=== PATIENT | female | born 1970 | race Caucasian/White ===

== ENCOUNTER 2017-02-25 10:04 | Emergency (ER) | payer SELFPAY ==
[~2017-02-25] VITALS: Ht 162.6 cm; Wt 60.0 kg
[2017-02-25 10:11] VITALS: Ht 162.6 cm; Wt 60.0 kg
== END 2017-02-25 15:18 | disposition left against medical advice (07) ==
LOC: E/R 10:04
DX: Z53.21 Procedure and treatment not carried out due to patient leaving prior to being seen by health care provider (principal)

== ENCOUNTER 2017-02-25 10:56 | Inpatient (IN) | payer BC, MEDICAID ==
[~2017-02-25] VITALS: Ht 165.1 cm; Wt 90.6 kg
--- NOTE | 2017-02-25 13:30 | ERA ---
ER Documentation Chief Complaint Date/Time DATE: 02/25/17 TIME: 13:29 Chief Complaint AP X TODAY HPI The patient is a 46-year-old female, presenting to the ER because of right pelvic, right lower quadrant pain radiating up to right upper back today. She denies similar symptoms previously, denies fever, chills, neck pain, chest pain , vomiting, diarrhea, constipation, dysuria. She does not smoke, drinks socially Past medical history: None Past surgical history: One ROS All systems reviewed and are negative except as per history of present illness. Medications Home Meds No Active Prescriptions or Reported Meds Allergies Allergies: Coded Allergies: No Known Allergy (Unverified , 02/25/17) Physical Exam Vitals Vital Signs Date Time Temp Pulse Resp B/P Pulse Ox O2 Delivery O2 Flow Rate FiO2 02/25/17 16:37 85 19 124/93 100 Room Air 02/25/17 14:22 156/86 02/25/17 14:12 77 17 174/106 100 Room Air 02/25/17 10:59 98.7 68 18 156/82 99 Physical Exam Const: No acute distress. Head: Atraumatic. Eyes: Normal Conjunctiva. ENT: Normal External Ears, Nose and Mouth. Neck: Full range of motion. No meningismus. Resp: Clear to auscultation bilaterally. Cardio: Regular rate and rhythm, no murmurs. Abd: Soft, non distended, normal bowel sounds, moderate right lower quadrant, right pelvic, right CVA tenderness. No rigidity, rebound tenderness Skin: No petechiae or rashes. Back: No midline or flank tenderness. Ext: No cyanosis, or edema. Neur: Awake and alert. No focal deficit Psych: Normal Mood and Affect. Result Diagram: 02/25/17 1350 02/25/17 1350 Results 24 hrs Laboratory Tests Test 02/25/17 13:50 02/25/17 16:03 White Blood Count 11.910^3/ul Red Blood Count 4.4910^6/ul Hemoglobin 13.0g/dl Hematocrit 37.9% Mean Corpuscular Volume 84.4fl Mean Corpuscular Hemoglobin 29.0pg Mean Corpuscular Hemoglobin Concent 34.3g/dl Red Cell Distribution Width 14.7% Platelet Count 15299^3/UL Mean Platelet Volume 11.4fl Neutrophils % 89.0% Band Neutrophils % 2.0% Lymphocytes % 5.0% Monocytes % 4.0% Neutrophils # 10.610^3/ul Lymphocytes # 0.610^3/ul Monocytes # 0.510^3/ul Sodium Level 134mmol/L Potassium Level 3.8mmol/L Chloride Level 102mmol/L Carbon Dioxide Level 19mmol/L Anion Gap 17 Blood Urea Nitrogen 13mg/dl Creatinine 0.56mg/dl Glucose Level 113mg/dl Calcium Level 9.4mg/dl Total Bilirubin 0.7mg/dl Direct Bilirubin 0.00mg/dl Indirect Bilirubin 0.7mg/dl Aspartate Amino Transf (AST/SGOT) 32IU/L Alanine Aminotransferase (ALT/SGPT) 22IU/L Alkaline Phosphatase 77IU/L Total Protein 8.4g/dl Albumin 4.6g/dl Globulin 3.80g/dl Albumin/Globulin Ratio 1.21 Lipase 96U/L Bedside Urine pH (LAB) 8.5 Bedside Urine Protein (LAB) 1+ Bedside Urine Glucose (UA) Negative Bedside Urine Ketones (LAB) 4+ Bedside Urine Blood Negative Bedside Urine Nitrite (LAB) Negative Bedside Urine Leukocyte Esterase (L Negative Current Medications Medications (Trade) Dose Ordered Sig/Gilda Route PRN Reason Start Time Stop Time Status Last Admin Dose Admin Morphine Sulfate (morphine) 4 mg ONCE STAT IV 02/25/17 13:39 02/25/17 13:42 DC 02/25/17 14:07 Ondansetron HCl 4 mg 4 mg ONCE STAT IV 02/25/17 13:39 02/25/17 13:42 DC 02/25/17 14:08 Sodium Chloride (NS) 1,000 ml @ 1,000 mls/hr Q1H ONCE IV 02/25/17 15:30 02/25/17 16:29 DC 02/25/17 15:28 Procedures/[place] [id number] Radiology Main Line: [phone] DIAGNOSTIC IMAGING REPORT Patient: SHLOMO MANN : 1970 Age: 46 Sex: F MR #: [id number] DOS: 02/25/17 1339 Ordering MD: OKSANA LEGER MD Location: E/R Room/Bed: PROCEDURE: CT Abdomen and Pelvis without contrast. CLINICAL INDICATION: Abdominal pain TECHNIQUE: CT scan of the abdomen and pelvis without contrast was performed on a multi-slice CT scanner without intravenous contrast. Coronal and sagittal reformatted images were obtained from the axial source images. Images were reviewed on a high-resolution PACS workstation. One or more of the following does reduction techniques were used: Automated exposure control; adjustment of the mA and/or kV according to patient size; use of the aorta of reconstruction technique. The total exam CTDI equals 8.93 mGy and the total exam DLP equals 458.95 mGy-cm. COMPARISON: None available. FINDINGS: The lung bases are clear. Heart size is normal, and there is no evidence of pericardial thickening or effusion. Incidental note is made with small left Bochdalek hernia containing only fat The liver, spleen, and pancreas are normal given limitations of a noncontrast CT examination. The gallbladder is normal. The adrenal glands are normal. The kidneys without renal calculus or hydronephrosis. The aorta is of normal caliber. There is no retroperitoneal lymph node enlargment. There is no evidence of large or small bowel obstruction. A normal appendix is identified. No free fluid or fluid collections are identified. No inflammatory changes are seen. The uterus is present. There is gas and possible filling defect within the vagina there is a 5.5 x 4.9 x 10.6 cm complex cystic structure arising from the left ovary highly concerning for a cystic ovarian neoplasm. No enlarged pelvic sidewall lymph nodes are seen. There is small amounts of pelvic free fluid. The bladder is within normal limits. The inguinal regions are unremarkable The bones are intact. IMPRESSION: 1. 10.6 x 5.5 x 4.9 cm complex cystic structure arising from the right ovary consistent with cystic ovarian neoplasm until proven otherwise. Recommend additional evaluation with pelvic ultrasound in strong consideration for further evaluation with contrast enhanced MRI of the pelvis. 2. Small pelvic free fluid. 3. No CT evidence of acute intra-abdominal or pelvic process. RPTAT: KK .Willy Lott MD, Date Time Electronically viewed and signed by .Willy Lott MD, MD on 2016 16:29 .B/ CC: OKSANA LEGER MD [place] [id number] Radiology Main Line: [phone] DIAGNOSTIC IMAGING REPORT Patient: SHLOMO MANN : 1970 Age: 46 Sex: F MR #: [id number] DOS: 02/25/17 1641 Ordering MD: OKSANA LEGER MD Location: E/R Room/Bed: PROCEDURE: US Pelvis. CLINICAL INDICATION: Right adnexal mass. TECHNIQUE: The pelvis was evaluated with transabdominal and transvaginal sonography in the axial and sagittal planes. COMPARISON: CT scan of the abdomen and pelvis done earlier the same day which demonstrated a right adnexal mass measuring 10.6 x 5.5 x 4.9 cm and a small amount of pelvic free fluid. FINDINGS: Uterus: 11.8 x 4.9 x 6.0 cm. Endometrium: 17.2 mm. Right ovary: 10.8 x 5.5 x 5.2 cm. Left ovary: Not visualized. Uterine masses: None. Ovarian masses: As seen on prior CT scan, there is a right adnexal mass, arising likely from the right ovary measuring 10.8 x 5.1 x 5.4 cm. The mass is predominately cystic with some septations and small irregular solid component. The left ovary is not visualized Color Doppler and pulsed Doppler sonography demonstrate normal flow to right ovary Other pelvic masses: None. Free fluid: Trace free fluid is present in the cul-de-sac. IMPRESSION: 1. Right adnexal predominately cystic mass with some septations and solid component. This may be due to ovarian neoplasm. Gynecologic consultation is advised. 2. Left ovary not visualized. 3. Trace free fluid in the pelvis. 4. Otherwise unremarkable study. RPTAT: QQ .Marques Merritt MD, MD Date Time Electronically viewed and signed by .Marques Merritt MD, on 02/25/2017 17:48 .R/ CC: OKSANA LEGER MD MEDICAL MAKING DECISION: The patient is a 46-year-old female, presenting with acute large right pelvic mass, concerning for neoplasm. She was treated with 1 L normal saline for clinical dehydration, morphine m4 g IV for pain, Zofran 4 mg IV for nausea with good response The differential diagnoses considered include but are not limited to ovarian torsion, cholelithiasis, cholecystitis, cystitis, pancreatitis, hepatitis, gastritis, peptic ulcer disease, gastric ulcer, appendicitis, diverticulitis, cholangitis, choledocholithiasis, partial small bowel obstruction. Consultation: I discussed the patient with the on-call basin tender Dr Comer, who was made aware of the labs, the ultrasound finding, the treatment. He was in the ER to evaluate patient Departure Diagnosis: Primary Impression: Pelvic mass in female Condition: Stable Comments I discussed the findings with the patient. I discussed the patient with his physician Dr. Haynes who was made aware of the lab, the treatment, the patient condition and my discussion with her basin tender. The patient is admitted to medical surgery bed The patient's blood pressure was elevated (>120/80) but appears stable without evidence of hypertension emergency or urgency. The patient was counseled about the risks of hypertension and urged to pursue outpatient monitoring and therapy within a week with their primary care physician. OKSANA LEGER MD February 25, 2017 13:30
[2017-02-25] MEDS ORDERED: ONDANSETRON 4 MG INJ IV STA (13:39)
[2017-02-25] MEDS ORDERED: morphine 4 MG/ML VIAL IV STA (13:39)
[2017-02-25 14:29] LABS: ADD SCAN DIFF NO
[2017-02-25 14:31] LABS: ABNORMAL IP MESSAGE 1; HEMATOCRIT 37.9 % (37.0-47.0); MEAN CORPUSCULAR HGB CONC 34.3 g/dl (32.0-37.0); MEAN CORPUSCULAR VOLUME 84.4 fl (82.0-101.0); MEAN PLATELET VOLUME 11.4 fl (7.4-10.4); PLATELET COUNT 243 10^3/UL (140-415); RED BLOOD COUNT 4.49 10^6/ul (4.20-5.40); RED CELL DISTRIBUTION WIDTH 14.7 % (11.5-14.5); WHITE BLOOD COUNT 11.9 10^3/ul (4.8-10.8)
[2017-02-25 14:50] LABS: ALBUMIN 4.6 g/dl (3.3-4.9); ALBUMIN/GLOBULIN RATIO 1.21; BILIRUBIN,INDIRECT 0.7 mg/dl (0-1.1); BILIRUBIN,TOTAL 0.7 mg/dl (0.2-1.3); CALCIUM 9.4 mg/dl (8.4-10.2); CREATININE 0.56 mg/dl (0.44-1.00); POTASSIUM 3.8 mmol/L (3.5-5.1); TOTAL PROTEIN 8.4 g/dl (6.1-8.1)
[2017-02-25] MEDS ORDERED: SOD CHLORIDE 0.9% 1,000 ML IV ONE (15:30)
[2017-02-25 15:53] LABS: LYMPHOCYTES # 0.6 10^3/ul (0.8-2.9); MONOCYTE # 0.5 10^3/ul (0.3-0.9); NEUTROPHIL # 10.6 10^3/ul (1.6-7.5)
[2017-02-25 16:02] LABS: URINE BLOOD (Dip) POC Negative (NEGATIVE)
--- NOTE | 2017-02-25 16:30 | RADRPT ---
PROCEDURE: CT Abdomen and Pelvis without contrast. CLINICAL INDICATION: Abdominal pain TECHNIQUE: CT scan of the abdomen and pelvis without contrast was performed on a multi-slice [facility] without intravenous contrast. Coronal and sagittal reformatted images were obtained from the axial source images. Images were reviewed on a high-resolution PACS workstation. One or more of the following does reduction techniques were used: Automated exposure control; adjustment of the mA an d/or kV according to patient size; use of the aorta of reconstruction technique. The total exam CTD I equals 8.93 mGy and the total exam DLP equals 458.95 mGy-cm. COMPARISON: None available. FINDINGS: The lung bases are clear. Heart size is normal, and there is no evidence of pericardial thickening or effusion. Incidental note is made with small left Bochdalek hernia containing only fat The liver, spleen, and pancreas are normal given limitations of a noncontrast CT examination. The g allbladder is normal. The adrenal glands are normal. The kidneys without renal calculus or hydronephrosis. The aorta is of normal caliber. There is no retroperitoneal lymph node enlargment. There is no evidence of large or small bowel obstruction. A normal appendix is identified. No can e fluid or fluid collections are identified. No inflammatory changes are seen. The uterus is present. There is gas and possible filling defect within the vagina there is a 5.5 x 4.9 x 10.6 cm complex cystic structure arising from the left ovary highly concerning for a cystic ov deepa neoplasm. No enlarged pelvic sidewall lymph nodes are seen. There is small amounts of pelvic free fluid. The bladder is within normal limits. The inguinal regions are unremarkable The bones are intact. IMPRESSION: 1. 10.6 x 5.5 x 4.9 cm complex cystic structure arising from the right ovary consistent with cystic ovarian neoplasm until proven otherwise. Recommend additional evaluation with pelvic ultrasound in strong consideration for further evaluation with contrast enhanced MRI of the pelvis. 2. Small pelvic free fluid. 3. No CT evidence of acute intra-abdominal or pelvic process. RPTAT: KK .Willy Lott MD, MD Date Time Electronically viewed and signed by .Willy Lott MD, MD on 02/25/2017 16:29 .B/
--- NOTE | 2017-02-25 17:49 | RADRPT ---
PROCEDURE: US Pelvis. CLINICAL INDICATION: Right adnexal mass. TECHNIQUE: The pelvis was evaluated with transabdominal and transvaginal sonography in the axial a nd sagittal planes. COMPARISON: CT scan of the abdomen and pelvis done earlier the same day which demonstrated a right adnexal mass measuring 10.6 x 5.5 x 4.9 cm and a small amount of pelvic free fluid. FINDINGS: Uterus: 11.8 x 4.9 x 6.0 cm. Endometrium: 17.2 mm. Right ovary: 10.8 x 5.5 x 5.2 cm. Left ovary: Not visualized. Uterine masses: None. Ovarian masses: As seen on prior CT scan, there is a right adnexal mass, arising likely from the rig ht ovary measuring 10.8 x 5.1 x 5.4 cm. The mass is predominately cystic with some septations and s mall irregular solid component. The left ovary is not visualized Color Doppler and pulsed Doppler s onography demonstrate normal flow to right ovary Other pelvic masses: None. Free fluid: Trace free fluid is present in the cul-de-sac. IMPRESSION: 1. Right adnexal predominately cystic mass with some septations and solid component. This may be d ue to ovarian neoplasm. Gynecologic consultation is advised. 2. Left ovary not visualized. 3. Trace free fluid in the pelvis. 4. Otherwise unremarkable study. RPTAT: QQ .Marques Merritt MD, Date Time Electronically viewed and signed by .Marques Merritt MD, on 02/25/2017 17:48 .R/
[2017-02-25 18:48] VITALS: BP 184/93; PULSE 92; RESP 18
[2017-02-25] MEDS ORDERED: morphine 2 MG INJ IV PRN (19:00)
[2017-02-25] MEDS ORDERED: ONDANSETRON 4 MG INJ IV PRN (19:00)
[2017-02-25] MEDS ORDERED: ACETAMINOPHEN 1000MG/100ML IV 100 ML IVPB SCH (19:00)
--- NOTE | 2017-02-25 19:40 | ERD ---
DATE OF SERVICE: HISTORY OF PRESENT ILLNESS: The patient is a 46-year-old with regular menstrual periods with emerge nt right-sided lower quadrant abdominal pain and no nausea, vomiting, fevers or chills. Upon ER, th e pain has improved. ALLERGIES: NONE. PAST SURGICAL HISTORY: None. MEDICATIONS: None. PHYSICAL EXAMINATION: VITAL SIGNS: Stable. GENERAL: Within normal limits. ABDOMEN: Soft, nontender, no rebound, no guarding. EXTREMITIES: No edema. IMAGING: Shows a right ovarian mass 10 x 6 cm which may represent an ovarian neoplasm. MEDICAL DECISION MAKING: A 46-year-old with a 10 to 11 x 6 cm ovarian mass with possibility of ovar sil neoplasm. The patient currently stable. Pain is minimal. Ultrasound shows good Doppler flow. The patient is probably admitted for observation overnight and consultation with [employer] oncology will also be obtained. Dictated By: KAMILA OLSON MD /NTS Conf#: [id number] DID#: [id number]
[2017-02-25 20:23] VITALS: BP 157/83; RESP 18
[2017-02-25] MEDS: D5-NS + KCL 20 MEQ 1,000 ML IV SCH (21:44)
[2017-02-25 21:52] VITALS: Ht 165.1 cm; Wt 90.6 kg
--- NOTE | 2017-02-25 23:50 | HP ---
DATE OF ADMISSION: 02/25/2017 CHIEF COMPLAINT: Right lower abdominal pain. HISTORY OF PRESENT ILLNESS: The patient is a 46-year-old female with no significant past medical history who came to ER with right-sided abdominal pain. The patient reported the pain was radiating to the back as well as to the right leg. The patient also had associated vomiting. No reported fever or chills. No reported chest pain or shortness of breath. No reported recent vaginal bleeding. In fact, patient's last menstrual period was in 11/2016. The patient denied any history of chest pain. No reported leg edema. No report of any acute joint pain. The rest of review of systems were unremarkable. The patient was seen in the ER and had a CT of the abdomen and pelvis done, which revealed 10.6 x 5.5 x 4.9 cm complex cystic structure arising from the right ovary, consistent with cystic ovarian neoplasm until proven otherwise. There was a small amount of pelvic free fluid also noted. CBC revealed WBC count of 11.9. The patient is being admitted for further evaluation and management. PAST SURGICAL HISTORY: Status post tubal ligation. ALLERGIES: NONE. SOCIAL HISTORY: No history of smoking. The patient drinks alcohol socially. FAMILY HISTORY: Negative for gynecological malignancies, as well as breast carcinoma. MEDICATIONS PRIOR TO ADMISSION: None. PHYSICAL EXAMINATION: GENERAL: The patient is conscious, awake, alert. VITAL SIGNS: Blood pressure 142/67, temperature 98.2, pulse 69, respirations 18 , O2 saturation 100% on room air. HEENT: Atraumatic, normocephalic. Conjunctivae and lids are normal. Oropharynx clear. NECK: Supple. No mass, no JVD. CHEST: Fairly clear. CARDIOVASCULAR: S1, S2 normal. No murmur. ABDOMEN: Soft. Right-sided tenderness present. There is mild voluntary guarding. No rebound tenderness. Bowel sounds plus. EXTREMITIES: No leg edema. NEUROLOGIC: The patient is awake, alert, fairly oriented with no gross focal deficit. LABORATORY DATA: Sodium 134, potassium 3.8, BUN 13, creatinine 0.5, glucose 113 , calcium 9.4. AST 32, ALT 22, alkaline phosphatase 87. WBC 11.9, hemoglobin 13, platelets 243. IMPRESSION: Abdominal pain secondary to complex pelvic cystic mass arising from the right ovary, etiology unknown. PLAN: The patient admitted on medical floor. The patient will be kept n.p.o. Will be given IV fluids, IV pain medication, and symptomatic treatment including IV Zofran for nausea, vomiting. Will use SCD for DVT prophylaxis. ER physician, Dr. Cortés, had called for SPREADER on panel and patient, in fact, was seen by Dr. Vanegas. I spoke with Dr. Vanegas after his evaluation and he told me that he will call Dr. Angel for further evaluation and management. Further recommendations will depend on patient's hospital course. Dictated By: DONALD MONTENEGRO/MED Conf#: [id number] DID#: [id number] MTDD
[2017-02-26] MEDS ORDERED: ACETAMINOPHEN 1000MG/100ML IV 100 ML IVPB PRN (01:00)
[2017-02-26 05:21] LABS: ADD SCAN DIFF NO
[2017-02-26 05:25] LABS: BASOPHILS % 0.2 % (0.0-2.0); EOSINOPHILS % 0.1 % (0.0-7.0); HEMATOCRIT 32.8 % (37.0-47.0); HEMOGLOBIN 11.3 g/dl (12.0-16.0); LYMPHOCYTES # 1.3 10^3/ul (0.8-2.9); LYMPHOCYTES % 13.7 % (15.0-51.0); MEAN CORPUSCULAR HEMOGLOBIN 29.2 pg (29.0-33.0); MEAN CORPUSCULAR HGB CONC 34.5 g/dl (32.0-37.0); MEAN CORPUSCULAR VOLUME 84.8 fl (82.0-101.0); MEAN PLATELET VOLUME 9.8 fl (7.4-10.4); MONOCYTE # 1.2 10^3/ul (0.3-0.9); MONOCYTES % 11.7 % (0.0-11.0); NEUTROPHIL # 7.3 10^3/ul (1.6-7.5); PLATELET COUNT 255 10^3/UL (140-415); RED BLOOD COUNT 3.87 10^6/ul (4.20-5.40); RED CELL DISTRIBUTION WIDTH 15.4 % (11.5-14.5); WHITE BLOOD COUNT 9.8 10^3/ul (4.8-10.8)
[2017-02-26 05:42] LABS: CALCIUM 8.4 mg/dl (8.4-10.2); CREATININE 0.57 mg/dl (0.44-1.00); POTASSIUM 3.3 mmol/L (3.5-5.1)
[2017-02-26 08:35] VITALS: BP 124/65; RESP 18
[2017-02-26] MEDS: D5-NS + KCL 20 MEQ 1,000 ML IV SCH ×2 (10:00→19:06)
--- NOTE | 2017-02-26 16:57 | PN ---
Date/Time of Note Date/Time of Note DATE: 02/26/17 TIME: 16:54 Assessment/Plan VTE Prophylaxis VTE Prophylaxis Intervention: SCD's Lines/Catheters IV Catheter Type (from Nrs): Peripheral IV Urinary Cath still in place: No Assessment/Plan Chief Complaint/Hosp Course Assessment and Plan: Abdominal pain secondary to complex pelvic cystic mass arising from the right ovary, etiology unknown. Dr. Avery Strauss is asked to see patient in surgical consultation. Continue pain medication. Further recommendations based on clinical course. Plan of care discussed with Dr. Haynes. Problems: Subjective 24 Hr Interval Summary Free Text/Dictation Patient is stated that her right lower quadrant pain is better controlled, denies nausea vomiting. Exam/Review of Systems Vital Signs Vitals Vital Signs Date Time Temp Pulse Resp B/P Pulse Ox O2 Delivery O2 Flow Rate FiO2 02/26/17 08:35 98.3 72 18 124/65 99 02/25/17 18:48 Room Air Intake and Output 02/25/17 02/25/17 02/26/17 15:00 23:00 07:00 Intake Total 800 ml Balance 800 ml Exam Constitutional: alert, oriented Psych: no complaints Head: atraumatic Eyes: nl conjunctiva ENMT: nl external ears & nose Neck: non-tender, supple Respiratory: normal air movement Cardiovascular: nl pulses, regular rate and rhythm Gastrointestinal: non-tender, soft Genitourinary - Female: other (Right lower quadrant pain) Extremities: normal pulses Results Result Diagram: 02/26/17 0439 02/26/17 0439 Results 24 hrs Laboratory Tests Test 02/26/17 04:39 White Blood Count 9.8 Red Blood Count 3.87 L Hemoglobin 11.3 L Hematocrit 32.8 L Mean Corpuscular Volume 84.8 Mean Corpuscular Hemoglobin 29.2 Mean Corpuscular Hemoglobin Concent 34.5 Red Cell Distribution Width 15.4 H Platelet Count 255 Mean Platelet Volume 9.8 Neutrophils % 74.0 Lymphocytes % 13.7 L Monocytes % 11.7 H Eosinophils % 0.1 Basophils % 0.2 Nucleated Red Blood Cells % 0.0 Neutrophils # 7.3 Lymphocytes # 1.3 Monocytes # 1.2 H Eosinophils # 0.0 Basophils # 0.0 Nucleated Red Blood Cells # 0.0 Sodium Level 135 Potassium Level 3.3 L Chloride Level 108 Carbon Dioxide Level 23 Anion Gap 7 #L Blood Urea Nitrogen 8 Creatinine 0.57 Glucose Level 127 Calcium Level 8.4 Medications Medications Current Medications Potassium Chloride/Dextrose/ Sod Cl (D5-NS + KCl 20 Meq) 1,000 ml @ 100 mls/hr Q10H IV Last administered on 02/26/17 10:00; Admin Dose 100 MLS/HR; Start at 19:00 Ondansetron HCl (Zofran Inj) 4 mg Q6H PRN IV NAUSEA AND/OR VOMITING; Start 02/25 at 19:00 Morphine Sulfate 2 mg 2 mg Q2H PRN IV PAIN; Start 02/25/17 at 19:00 Acetaminophen (Ofirmev 1000mg/ 100ml Iv) 100 ml @ 400 mls/hr Q6H PRN IVPB PAIN Last administered on 02/26/17 02:21; Admin Dose 400 MLS/HR; Start 02/26/17 at 01:00 BAKARI RAYMUNDO February 26, 2017 16:57
[2017-02-26] MEDS ORDERED: POTASSIUM CHLORIDE 20 MEQ in SOD CHLORIDE 0.9% 100 ML IVPB ONE (18:00)
[2017-02-26 19:52] VITALS: BP 191/88; RESP 18
--- NOTE | 2017-02-26 23:05 | CONS ---
Date/Time of Note Date/Time of Note DATE: 02/26/17 TIME: 23:04 Consultation Date/Type/Reason Admit Date/Time February 25, 2017 at 17:12 Date of Consultation: February 26, 2017 Hx of Present Illness Neri Angel M.D. [facility] History and Physical Examination Sandra Melo Date:February 26, 2017 :1970 Age: 46 Physicians: Chief Hospital Administrator [facility] [employer] Oncologist Referring MD: History of the Present Illness: A 46 year old female with a gradually increasing pelvic mass. The mass is complex and 10 cm asociated with severe pain. Medical history/ROS: all other systems unremarkable. Surgical history: no significant abdominal procedures. Medications: reviewed gardisil Allergies: No active abx allergies recorded Family Hx: non-contributary Social HX: non-contributary ROS: as above Colonoscopy Physical Examination General: Alert. HEENT: Pupils are equal, round, reactive to light and accommodation. Neck: Supple with no masses of lymphadenopathy. Breast: Deferred due to recent examination and responsibility of primary care physician. Chest: Clear to auscultation Heart: Normal rhythm with no murmur. Abdomen: R > L tender, no ascites nor organomeglay. Pelvic exam: R/central adnexal tender cystic masses, no cul-de-sac nodularity noted Rectal: confirmatory with pelvic exam. Neurological: Grossly intact Assessment: Pelvic mass Plan: additional labs/clearance and laparoscopic USO, poss TLH/ BSO, possible staging, possible open. All risks and benefits of this procedure have been discussed in detail with the patient, as well as alternative treatment strategies and their implications. The patient is aware that there is some possibility of a blood transfusion and its associated risks and benefits. She wishes to proceed and gives her informed consent. Neri Angel M.D. Psychological: no complaints Social History Smoking Status: Never smoker Exam/Review of Systems Vital Signs Vitals Vital Signs Date Time Temp Pulse Resp B/P Pulse Ox O2 Delivery O2 Flow Rate FiO2 02/26/17 19:52 98.1 191 18 191/88 99 02/25/17 18:48 Room Air Intake and Output 02/25/17 02/25/17 02/26/17 15:00 23:00 07:00 Intake Total 800 ml Balance 800 ml Results Result Diagram: 02/26/17 0439 02/26/17 0439 Results 24 hrs Laboratory Tests Test 02/26/17 04:39 White Blood Count 9.8 Red Blood Count 3.87 L Hemoglobin 11.3 L Hematocrit 32.8 L Mean Corpuscular Volume 84.8 Mean Corpuscular Hemoglobin 29.2 Mean Corpuscular Hemoglobin Concent 34.5 Red Cell Distribution Width 15.4 H Platelet Count 255 Mean Platelet Volume 9.8 Neutrophils % 74.0 Lymphocytes % 13.7 L Monocytes % 11.7 H Eosinophils % 0.1 Basophils % 0.2 Nucleated Red Blood Cells % 0.0 Neutrophils # 7.3 Lymphocytes # 1.3 Monocytes # 1.2 H Eosinophils # 0.0 Basophils # 0.0 Nucleated Red Blood Cells # 0.0 Sodium Level 135 Potassium Level 3.3 L Chloride Level 108 Carbon Dioxide Level 23 Anion Gap 7 #L Blood Urea Nitrogen 8 Creatinine 0.57 Glucose Level 127 Calcium Level 8.4 Medications Medications Current Medications Potassium Chloride/Dextrose/ Sod Cl (D5-NS + KCl 20 Meq) 1,000 ml @ 70 mls/hr [id number] IV Last administered on 02/26/17 19:06; Admin Dose 100 MLS/HR; Start at 19:00 Ondansetron HCl (Zofran Inj) 4 mg Q6H PRN IV NAUSEA AND/OR VOMITING; Start 02/25 at 19:00 Morphine Sulfate 2 mg 2 mg Q2H PRN IV PAIN; Start 02/25/17 at 19:00 Acetaminophen (Ofirmev 1000mg/ 100ml Iv) 100 ml @ 400 mls/hr Q6H PRN IVPB PAIN Last administered on 02/26/17 02:21; Admin Dose 400 MLS/HR; Start 02/26/17 at 01:00 NERI ANGEL MD February 26, 2017 23:05
[2017-02-27] MEDS: D5-NS + KCL 20 MEQ 1,000 ML IV SCH ×2 (02:00→11:35)
--- NOTE | 2017-02-27 02:17 | RADRPT ---
PROCEDURE: XR Chest. CLINICAL INDICATION: Chest pain. TECHNIQUE: PA and lateral chest x-ray. COMPARISON: None. FINDINGS: The cardiomediastinal silhouette is unremarkable. There is no congestive heart failure. There is no focal infiltrate. There is no pleural effusion. There is no pneumothorax The osseous structur es are unremarkable. IMPRESSION: No active disease. RPTAT: HMVK .Jaziel Peralta MD, MD Date Time Electronically viewed and signed by .Jaziel Peralta MD, on 02/27/2017 02:17 .K/
[2017-02-27 05:13] LABS: ADD SCAN DIFF NO
[2017-02-27 05:17] LABS: BASOPHILS % 0.5 % (0.0-2.0); EOSINOPHILS % 0.7 % (0.0-7.0); HEMATOCRIT 32.3 % (37.0-47.0); HEMOGLOBIN 10.6 g/dl (12.0-16.0); LYMPHOCYTES # 1.8 10^3/ul (0.8-2.9); LYMPHOCYTES % 29.3 % (15.0-51.0); MEAN CORPUSCULAR HEMOGLOBIN 28.4 pg (29.0-33.0); MEAN CORPUSCULAR HGB CONC 32.8 g/dl (32.0-37.0); MEAN CORPUSCULAR VOLUME 86.6 fl (82.0-101.0); MEAN PLATELET VOLUME 10.2 fl (7.4-10.4); MONOCYTE # 0.8 10^3/ul (0.3-0.9); NEUTROPHIL # 3.4 10^3/ul (1.6-7.5); NEUTROPHILS % 56.2 % (39.0-77.0); PLATELET COUNT 245 10^3/UL (140-415); RED BLOOD COUNT 3.73 10^6/ul (4.20-5.40); RED CELL DISTRIBUTION WIDTH 15.2 % (11.5-14.5); WHITE BLOOD COUNT 6.1 10^3/ul (4.8-10.8)
--- NOTE | 2017-02-27 05:21 | CONS ---
Date/Time of Note Date/Time of Note DATE: 02/27/17 TIME: 04:42 Consultation Date/Type/Reason Admit Date/Time February 26, 2017 Hospital consult Reason for Consultation This patient is a 46 years old 3 para 3 who came to the emergency room complaining of right sided lower and mid abdominal pain . On ultrasound and CAT scan in the emergency room a complex cystic structure arising from the right ovary described which measured about 10.6 x 5.5 x 4.9 cm and she was admitted in the hospital for further evaluation due to possibility of malignancy Past history : On reviewing her past history ,except for the spontaneous vaginal delivery of her 3 children she had no other major medical condition, no other surgeries, does not give any history of any allergies In describing her complain she mentioned that the pain is radiating to her right leg Pain was occasionally associated with nausea and vomiting She was subsequently admitted in the hospital for further evaluation and possible surgery Subjective hx not possible: pt non-verbal, pt critical, pt critical status, other (this patient is verbal and cooperative) Constitutional: improved, No chills, No diaphoresis, No disoriented, No febrile, No no complaints, No other, No poor po, No requiring IVF, No requiring O2 Eyes: No discharge, No no complaints, No other, No pain, No redness, No visual change ENT: No bleeding, No congestion, No discharge, No dysphagia, No no complaints, No other, No pain, No sore throat Respiratory: No cough, No no complaints, No other, No pain, No pleuritic pain, No shortness of breath, No sputum, No wheezing Cardiovascular: No chest pain, No edema, No lightheadedness, No no complaints, No orthopenea, No other, No palpitations, No paroxysmal nocturnal dyspnea Gastrointestinal: other (As I mentioned she was complaining of right lower quadrant pain and and right side pain and nausea and occasional vomiting), No blood, No constipation, No decreased appetite, No diarrhea, No flatus, No nausea, No no complaints, No pain, No passing stool, No vomiting Genitourinary: other (On pelvic exam vulva vagina cervix was normal and some tenderness and a soft mass could be palpated on the pelvis), No bleeding, No discharge, No dysuria, No flank pain, No hematuria, No no complaints Musculoskeletal: No back pain, No bone/joint pain, No neck pain, No no complaints, No other, No restricted range of motion, No swelling Skin: No bruising, No erythema, No laceration, No no complaints, No other, No pruritis, No rash, No skin lesions Endocrine: No dry skin, No no complaints, No other, No polydypsia, No polyuria , No temp intolerance Psychological: no complaints Additional Comments This patient is admitted to the hospital and due to possibility of ovarian cancer a gynecological oncology consult will be requested. Dr. Vanegas will contact Dr Neri Bonner regarding this matter. Social History Smoking Status: Never smoker Exam/Review of Systems Vital Signs Vitals Vital Signs Date Time Temp Pulse Resp B/P Pulse Ox O2 Delivery O2 Flow Rate FiO2 02/26/17 19:52 98.1 191 18 191/88 99 02/25/17 18:48 Room Air Intake and Output 02/26/17 02/26/17 02/27/17 15:00 23:00 07:00 Intake Total 1400 ml 110 ml Output Total 1300 ml Balance 100 ml 110 ml Results Result Diagram: 02/26/17 0439 02/26/17 0439 Results 24 hrs Laboratory Tests Test 02/27/17 00:26 Troponin I < 0.012 Medications Medications Current Medications Potassium Chloride/Dextrose/ Sod Cl (D5-NS + KCl 20 Meq) 1,000 ml @ 70 mls/hr [id number] IV Last administered on 02/26/17 19:06; Admin Dose 100 MLS/HR; Start at 19:00 Ondansetron HCl (Zofran Inj) 4 mg Q6H PRN IV NAUSEA AND/OR VOMITING; Start 02/25 at 19:00 Morphine Sulfate 2 mg 2 mg Q2H PRN IV PAIN; Start 02/25/17 at 19:00 Acetaminophen (Ofirmev 1000mg/ 100ml Iv) 100 ml @ 400 mls/hr Q6H PRN IVPB PAIN Last administered on 02/26/17 02:21; Admin Dose 400 MLS/HR; Start 02/26/17 at 01:00 JO-ANN WALTER MD February 27, 2017 04:52
[2017-02-27 05:28] LABS: POTASSIUM 3.8 mmol/L (3.5-5.1)
[2017-02-27 05:30] LABS: CREATININE 0.6 mg/dl (0.44-1.00)
[2017-02-27 05:31] LABS: CALCIUM 8.4 mg/dl (8.4-10.2)
[2017-02-27 07:00] VITALS: BP 145/88; RESP 18
--- NOTE | 2017-02-27 10:15 | RADRPT ---
Vent Rate: 63 bpm RR Interval: 0 msec MD Interval: 140 msec QRS Duration: 84 msec QT Interval: 436 msec QTC Interval: 446 msec P-R-T [place]: 42 - 52 - 46 degrees Normal sinus rhythm Normal ECG Electronically Signed By: Francisco Rust [id number]
[2017-02-27] MEDS ORDERED: PEG/ELECTROLYTES 4L BTL PO ONE (12:00)
--- NOTE | 2017-02-27 15:49 | PN ---
Date/Time of Note Date/Time of Note DATE: 02/27/17 TIME: 15:47 Assessment/Plan VTE Prophylaxis VTE Prophylaxis Intervention: SCD's Lines/Catheters IV Catheter Type (from Nrs): Peripheral IV Urinary Cath still in place: No Assessment/Plan Chief Complaint/Hosp Course Assessment and Plan: - Abdominal pain secondary to complex pelvic cystic mass arising from the right ovary, etiology unknown. Dr. Angel is following in surgical consultation. Plan is for surgery tomorrow. continue pain medication. Further recommendations based on clinical course. Plan of care discussed with Dr. Haynes. Problems: Subjective 24 Hr Interval Summary Free Text/Dictation Patient is currently undergoing bowel prep for surgery tomorrow, pain is well controlled. Exam/Review of Systems Vital Signs Vitals Vital Signs Date Time Temp Pulse Resp B/P Pulse Ox O2 Delivery O2 Flow Rate FiO2 02/27/17 07:00 98.1 64 18 145/88 99 02/25/17 18:48 Room Air Intake and Output 02/26/17 02/26/17 02/27/17 15:00 23:00 07:00 Intake Total 1400 ml 2880 ml Output Total 1300 ml Balance 100 ml 2880 ml Exam Constitutional: alert, oriented Psych: no complaints Head: atraumatic Eyes: nl conjunctiva ENMT: nl external ears & nose Neck: non-tender, supple Respiratory: normal air movement Cardiovascular: nl pulses, regular rate and rhythm Gastrointestinal: non-tender, soft Genitourinary - Female: other (Right lower quadrant pain) Extremities: normal pulses Results Result Diagram: 02/27/17 0439 02/27/17 0439 Results 24 hrs Laboratory Tests Test 02/27/17 00:26 02/27/17 04:39 Troponin I < 0.012 White Blood Count 6.1 # Red Blood Count 3.73 L Hemoglobin 10.6 L Hematocrit 32.3 L Mean Corpuscular Volume 86.6 Mean Corpuscular Hemoglobin 28.4 L Mean Corpuscular Hemoglobin Concent 32.8 Red Cell Distribution Width 15.2 H Platelet Count 245 Mean Platelet Volume 10.2 Neutrophils % 56.2 Lymphocytes % 29.3 Monocytes % 13.0 H Eosinophils % 0.7 Basophils % 0.5 Nucleated Red Blood Cells % 0.0 Neutrophils # 3.4 Lymphocytes # 1.8 Monocytes # 0.8 Eosinophils # 0.0 Basophils # 0.0 Nucleated Red Blood Cells # 0.0 Sodium Level 141 Potassium Level 3.8 Chloride Level 107 Carbon Dioxide Level 27 Anion Gap 11 Blood Urea Nitrogen 6 L Creatinine 0.60 Glucose Level 98 Calcium Level 8.4 CA 125 Antigen 5.9 Medications Medications Current Medications Potassium Chloride/Dextrose/ Sod Cl (D5-NS + KCl 20 Meq) 1,000 ml @ 70 mls/hr [id number] IV Last administered on 02/27/17 11:35; Admin Dose 70 MLS/HR; Start at 19:00 Ondansetron HCl (Zofran Inj) 4 mg Q6H PRN IV NAUSEA AND/OR VOMITING; Start 02/25 at 19:00 Morphine Sulfate 2 mg 2 mg Q2H PRN IV PAIN; Start 02/25/17 at 19:00 Acetaminophen (Ofirmev 1000mg/ 100ml Iv) 100 ml @ 400 mls/hr Q6H PRN IVPB PAIN Last administered on 02/26/17 02:21; Admin Dose 400 MLS/HR; Start 02/26/17 at 01:00 BAKARI RAYMUNDO February 27, 2017 15:49
[2017-02-27 20:05] VITALS: BP 156/80; RESP 20
[2017-02-28] VITALS (24 sets, daily range): BP systolic 109–180; BP diastolic 53–97; PULSE 56–101; RESP 12–22
[2017-02-28] MEDS: D5-NS + KCL 20 MEQ 1,000 ML IV SCH ×3 (03:29→12:15)
[2017-02-28 05:32] LABS: ADD SCAN DIFF NO
[2017-02-28 05:34] LABS: BASOPHILS % 0.5 % (0.0-2.0); EOSINOPHILS # 0.1 10^3/ul (0.0-0.5); EOSINOPHILS % 0.9 % (0.0-7.0); HEMATOCRIT 30.6 % (37.0-47.0); HEMOGLOBIN 10.4 g/dl (12.0-16.0); LYMPHOCYTES # 1.7 10^3/ul (0.8-2.9); MEAN CORPUSCULAR HEMOGLOBIN 29.1 pg (29.0-33.0); MEAN CORPUSCULAR VOLUME 85.7 fl (82.0-101.0); MEAN PLATELET VOLUME 9.7 fl (7.4-10.4); MONOCYTE # 0.7 10^3/ul (0.3-0.9); MONOCYTES % 11.7 % (0.0-11.0); NEUTROPHIL # 3.3 10^3/ul (1.6-7.5); NEUTROPHILS % 56.6 % (39.0-77.0); PLATELET COUNT 260 10^3/UL (140-415); RED BLOOD COUNT 3.57 10^6/ul (4.20-5.40); RED CELL DISTRIBUTION WIDTH 14.8 % (11.5-14.5); WHITE BLOOD COUNT 5.7 10^3/ul (4.8-10.8)
[2017-02-28 06:00] LABS: INR 1.07; PARTIAL THROMBOPLASTIN TIME 26.9 Sec (25.0-35.0); PROTIME 13.9 Sec (12.2-14.2); PT RATIO 1.1
[2017-02-28 06:03] LABS: CALCIUM 8.7 mg/dl (8.4-10.2); CREATININE 0.53 mg/dl (0.44-1.00); POTASSIUM 3.6 mmol/L (3.5-5.1); THROMBIN TIME 14.9 SEC (13.8-19.1)
[2017-02-28] MEDS ORDERED: FENTAnyl 50 MCG/ML VIAL ONE (07:35)
[2017-02-28] MEDS ORDERED: morphine SULFATE/PF (10 MG/10 ML) INJ ONE (07:35)
[2017-02-28] MEDS ORDERED: ROCURONIUM 50 MG INJ ONE ×2 (07:35→09:10)
[2017-02-28] MEDS ORDERED: PROPOFOL 20 ML ONE (07:35)
[2017-02-28] MEDS ORDERED: MIDAZOLAM 1 MG/ML 2 ML INJ ONE (07:35)
[2017-02-28] MEDS ORDERED: LIDOCAINE 1% (MDV) 20 ML INJ ONE (07:36)
--- NOTE | 2017-02-28 07:48 | HPN ---
Date/Time of Note Date/Time of Note DATE: 02/28/17 TIME: 07:48 Interval H&P Admission Note Pt. seen H&P reviewed: No system changes MARIELLA KUHN MD February 28, 2017 07:48
[2017-02-28] MEDS ORDERED: metroNIDAZOLE 500 MG/NS (PMX) 100 ML IVPB ONE (08:21)
[2017-02-28] MEDS ORDERED: ONDANSETRON 4 MG INJ ONE (08:27)
[2017-02-28] MEDS ORDERED: FAMOTIDINE 20 MG INJ ONE (08:27)
[2017-02-28] MEDS ORDERED: DEXAMETHASONE 4 MG/ML 1 ML INJ ONE (08:28)
[2017-02-28] MEDS ORDERED: LEVOFLOXACIN 500MG/D5W (PMX) 100 ML IVPB ONE (08:30)
[2017-02-28] MEDS ORDERED: PHENYLephrine (100 MCG/ML) 5ML SYG ONE (09:19)
[2017-02-28] MEDS ORDERED: THROMBIN 5000 UNIT VIAL ONE (09:47)
[2017-02-28] MEDS ORDERED: NEOSTIGMINE 3 MG/3 ML SYRINGE ONE (10:06)
[2017-02-28] MEDS ORDERED: GLYCOPYRROLATE 0.4 MG INJ ONE (10:06)
[2017-02-28] MEDS ORDERED: ONDANSETRON 4 MG INJ IV PRN ×2 (10:30→11:00)
[2017-02-28] MEDS ORDERED: morphine 2 MG INJ IV PRN (10:30)
[2017-02-28] MEDS ORDERED: DIPHENHYDRAMINE 50 MG INJ ONE (10:33)
[2017-02-28] MEDS ORDERED: hydrALAzine 20 MG INJ ONE (10:50)
[2017-02-28] MEDS ORDERED: KETOROLAC 30 MG INJ IV PRN (11:00)
[2017-02-28] MEDS ORDERED: NALOXONE (0.4 MG/ML) INJ IV PRN (11:00)
[2017-02-28] MEDS ORDERED: DIPHENHYDRAMINE 50 MG INJ IV PRN (11:00)
[2017-02-28] MEDS ORDERED: hydrALAzine 20 MG INJ IV ONE (11:00)
[2017-02-28] MEDS ORDERED: ZOLPIDEM 5 MG TAB PO PRN (11:00)
[2017-02-28] MEDS ORDERED: HYDROmorphONE 1 MG/ML SYG IV PRN ×2 (11:00)
[2017-02-28] MEDS ORDERED: DIPHENHYDRAMINE 50 MG INJ IM ONE (11:00)
[2017-02-28] MEDS ORDERED: PROCHLORPERAZINE 10 MG INJ IV PRN (11:00)
[2017-02-28 11:34] LABS: ADD UMIC NO; URINE BILIRUBIN (Dip) NEGATIVE (NEGATIVE); URINE BLOOD (Dip) NEGATIVE (NEGATIVE); URINE COLOR LT. YELLOW (YELLOW); URINE KETONES (Dip) TRACE (NEGATIVE); URINE LEUKOCYTE ESTERASE (Dip) NEGATIVE (NEGATIVE); URINE NITRITE (Dip) NEGATIVE (NEGATIVE); URINE TOTAL PROTEIN (Dip) NEGATIVE (NEGATIVE); URINE UROBILINOGEN (Dip) 0.2 E.U./dL (0.1-1.0)
[2017-02-28 13:17] LABS: ADD SCAN DIFF NO
[2017-02-28 13:27] LABS: BASOPHILS % 0.2 % (0.0-2.0); HEMATOCRIT 33.8 % (37.0-47.0); HEMOGLOBIN 11.4 g/dl (12.0-16.0); LYMPHOCYTES # 0.7 10^3/ul (0.8-2.9); LYMPHOCYTES % 6.5 % (15.0-51.0); MEAN CORPUSCULAR HEMOGLOBIN 29.3 pg (29.0-33.0); MEAN CORPUSCULAR HGB CONC 33.7 g/dl (32.0-37.0); MEAN CORPUSCULAR VOLUME 86.9 fl (82.0-101.0); MEAN PLATELET VOLUME 9.9 fl (7.4-10.4); MONOCYTE # 0.1 10^3/ul (0.3-0.9); MONOCYTES % 1.2 % (0.0-11.0); NEUTROPHIL # 9.1 10^3/ul (1.6-7.5); NEUTROPHILS % 91.7 % (39.0-77.0); PLATELET COUNT 278 10^3/UL (140-415); RED BLOOD COUNT 3.89 10^6/ul (4.20-5.40); RED CELL DISTRIBUTION WIDTH 14.9 % (11.5-14.5)
[2017-02-28 13:47] LABS: CALCIUM 8.6 mg/dl (8.4-10.2); CREATININE 0.48 mg/dl (0.44-1.00); POTASSIUM 3.2 mmol/L (3.5-5.1)
[2017-02-28] MEDS: POTASSIUM CHLORIDE 20 MEQ in LACTATED RINGER'S 1,000 ML IV SCH ×2 (13:58→22:36)
[2017-02-28] MEDS: metroNIDAZOLE 500 MG/NS (PMX) 100 ML IVPB SCH ×2 (15:57→23:39)
--- NOTE | 2017-02-28 16:33 | PN ---
Date/Time of Note Date/Time of Note DATE: 02/28/17 TIME: 16:33 Assessment/Plan VTE Prophylaxis VTE Prophylaxis Intervention: other Lines/Catheters IV Catheter Type (from Nrs): Saline Lock Urinary Cath still in place: Yes Reason Cath still needed: urinary retention Exam/Review of Systems Vital Signs Vitals Vital Signs Date Time Temp Pulse Resp B/P Pulse Ox O2 Delivery O2 Flow Rate FiO2 02/28/17 15:30 95 15 119/65 100 Room Air 02/28/17 12:30 2.0 02/28/17 11:47 98.0 Intake and Output 02/27/17 02/27/17 02/28/17 15:00 23:00 07:00 Intake Total 1480 ml 4130 ml Output Total 1320 ml Balance 1480 ml 2810 ml Results Result Diagram: 02/28/17 1242 02/28/17 1242 Results 24 hrs Laboratory Tests Test 02/28/17 04:45 02/28/17 05:59 02/28/17 10:25 02/28/17 12:42 White Blood Count 5.7 10.0 # Red Blood Count 3.57 L 3.89 L Hemoglobin 10.4 L 11.4 L Hematocrit 30.6 L 33.8 L Mean Corpuscular Volume 85.7 86.9 Mean Corpuscular Hemoglobin 29.1 29.3 Mean Corpuscular Hemoglobin Concent 34.0 33.7 Red Cell Distribution Width 14.8 H 14.9 H Platelet Count 261 278 Mean Platelet Volume 9.7 9.9 Neutrophils % 56.6 91.7 H Lymphocytes % 30.0 6.5 L Monocytes % 11.7 H 1.2 Eosinophils % 0.9 0.0 Basophils % 0.5 0.2 Nucleated Red Blood Cells % 0.0 0.0 Neutrophils # 3.3 9.1 H Lymphocytes # 1.7 0.7 L Monocytes # 0.7 0.1 L Eosinophils # 0.1 0.0 Basophils # 0.0 0.0 Nucleated Red Blood Cells # 0.0 0.0 Prothrombin Time 13.9 Prothrombin Time Ratio 1.1 INR International Normalized Ratio 1.07 Activated Partial Thromboplast Time 26.9 Thrombin Time 14.9 Sodium Level 139 138 Potassium Level 3.6 3.2 L Chloride Level 108 106 Carbon Dioxide Level 27 26 Anion Gap 8 9 Blood Urea Nitrogen 7 6 L Creatinine 0.53 0.48 Glucose Level 106 176 Calcium Level 8.7 8.6 Urine Test NEGATIVE Urine Color LT. YELLOW Urine Clarity CLEAR Urine pH 7.0 Urine Specific [place] 1.020 Urine Ketones TRACE H Urine Nitrite NEGATIVE Urine Bilirubin NEGATIVE Urine Urobilinogen 0.2 E.U./dL Urine Leukocyte Esterase NEGATIVE Urine Hemoglobin NEGATIVE Urine Glucose 0.25% H Urine Total Protein NEGATIVE Medications Medications Current Medications Morphine Sulfate 2 mg 2 mg Q2H PRN IV PAIN; Start 02/25/17 at 19:00 Acetaminophen (Ofirmev 1000mg/ 100ml Iv) 100 ml @ 400 mls/hr Q6H PRN IVPB PAIN Last administered on 02/26/17t 02:21; Admin Dose 400 MLS/HR; Start 02/26/17 at 01:00 Naloxone HCl (Narcan) 0.1 mg Q2M PRN IV FOR RESP RATE 8 OR LESS; Start at 11:00; Stop 03/01/17 at 10:59 Ketorolac Tromethamine (Toradol) 30 mg Q6H PRN IV PAIN; Start 02/28/17 at 11:00 ; Stop 03/01/17 at 10:59 Hydromorphone HCl (Dilaudid) 0.2 mg Q3H PRN IV PAIN LEVEL 1-5; Start 02/28/17 at 11:00; Stop 03/01/17 at 10:59 Hydromorphone HCl (Dilaudid) 0.4 mg Q3H PRN IV PAIN LEVEL 6-10; Start 02/28/17 at 11:00; Stop 03/01/17 at 10:59 Diphenhydramine HCl (Benadryl) 25 mg Q6H PRN IV ITCHING; Start 02/28/17 at 11: 00; Stop 03/01/17 at 10:59 Ondansetron HCl (Zofran Inj) 4 mg Q6H PRN IV NAUSEA AND/OR VOMITING; Start 09/06 at 11:00; Stop 03/01/17 at 10:59 Prochlorperazine 10 mg 10 mg ONCE PRN IV NAUSEA AND/OR VOMITING; Start 02/28/17 at 11:00; Stop 03/01/17 at 10:59 Metronidazole (Flagyl 500 Mg (Pmx)) 100 ml @ 100 mls/hr Q8H IVPB Last administered on 02/28/17 15:57; Admin Dose 100 MLS/HR; Start 02/28/17 at 16:00 ; Stop 03/03/17 at 15:59 Morphine Sulfate (morphine) 2 mg Q2H PRN IV PAIN LEVEL 6-10; Start 02/28/17 at 10:30 Acetaminophen/ Hydrocodone Bitart ([place] (5/325)) 1 tab Q6H PRN PO PAIN LEVEL 6 -10; Start 02/28/17 at 10:30 Ondansetron HCl (Zofran Inj) 4 mg Q6H PRN IV NAUSEA AND/OR VOMITING; Start 09/06 at 10:30 Famotidine 20 mg 20 mg Q12 IV ; Start 02/28/17 at 21:00 Potassium Chloride 20 meq/ Lactated Ringer's 1,010 ml @ 100 mls/hr Q10H6M IV Last administered on 02/28/17 13:58; Admin Dose 100 MLS/HR; Start 02/28/17 at 12:30 Levofloxacin/ Dextrose (Levaquin 500mg/ D5W 100 ml (Pmx)) 100 ml @ 100 mls/hr Q24H IVPB ; Start 03/01/17 at 08:00; Stop 03/03/17 at 08:59 ARÚL GARCIA February 28, 2017 16:33
--- NOTE | 2017-02-28 16:35 | PN ---
Date/Time of Note Date/Time of Note DATE: 02/28/17 TIME: 16:33 Assessment/Plan VTE Prophylaxis VTE Prophylaxis Intervention: other Lines/Catheters IV Catheter Type (from Nrs): Saline Lock Urinary Cath still in place: Yes Reason Cath still needed: urinary retention Assessment/Plan Assessment/Plan - Abdominal pain secondary to complex pelvic cystic mass arising from the right ovary, etiology unknown. - Dr. Angel is following in surgical consultation. - Plan is for surgery today. continue pain medication. Further recommendations based on clinical course. Plan of care discussed with Dr. Haynes. Subjective 24 Hr Interval Summary Free Text/Dictation resting in bed, c.o abdominal pain , afebrile, plan for sx. dw staff Constitutional: requiring IVF Eyes: no complaints ENT: no complaints Respiratory: no complaints Cardiovascular: no complaints Gastrointestinal: no complaints Genitourinary: other (right pelvic pain- better now) Psychological: no complaints Immunologic: no complaints Exam/Review of Systems Vital Signs Vitals Vital Signs Date Time Temp Pulse Resp B/P Pulse Ox O2 Delivery O2 Flow Rate FiO2 02/28/17 15:30 95 15 119/65 100 Room Air 02/28/17 12:30 2.0 02/28/17 11:47 98.0 Intake and Output 02/27/17 02/27/17 02/28/17 15:00 23:00 07:00 Intake Total 1480 ml 4130 ml Output Total 1320 ml Balance 1480 ml 2810 ml Exam Constitutional: alert, oriented, well developed Psych: nl mood/affect Head: atraumatic Eyes: EOMI, nl sclera ENMT: nl external ears & nose Neck: non-tender Respiratory: clear to auscultation Cardiovascular: nl pulses Gastrointestinal: non-tender, soft Genitourinary - Female: other Musculoskeletal: nl extremities to inspection Extremities: normal pulses Neurological: nl mental status, nl speech Lymph: nontender Results Result Diagram: 02/28/17 1242 02/28/17 1242 Results 24 hrs Laboratory Tests Test 02/28/17 04:45 02/28/17 05:59 02/28/17 10:25 02/28/17 12:42 White Blood Count 5.7 10.0 # Red Blood Count 3.57 L 3.89 L Hemoglobin 10.4 L 11.4 L Hematocrit 30.6 L 33.8 L Mean Corpuscular Volume 85.7 86.9 Mean Corpuscular Hemoglobin 29.1 29.3 Mean Corpuscular Hemoglobin Concent 34.0 33.7 Red Cell Distribution Width 14.8 H 14.9 H Platelet Count 261 278 Mean Platelet Volume 9.7 9.9 Neutrophils % 56.6 91.7 H Lymphocytes % 30.0 6.5 L Monocytes % 11.7 H 1.2 Eosinophils % 0.9 0.0 Basophils % 0.5 0.2 Nucleated Red Blood Cells % 0.0 0.0 Neutrophils # 3.3 9.1 H Lymphocytes # 1.7 0.7 L Monocytes # 0.7 0.1 L Eosinophils # 0.1 0.0 Basophils # 0.0 0.0 Nucleated Red Blood Cells # 0.0 0.0 Prothrombin Time 13.9 Prothrombin Time Ratio 1.1 INR International Normalized Ratio 1.07 Activated Partial Thromboplast Time 26.9 Thrombin Time 14.9 Sodium Level 139 138 Potassium Level 3.6 3.2 L Chloride Level 108 106 Carbon Dioxide Level 27 26 Anion Gap 8 9 Blood Urea Nitrogen 7 6 L Creatinine 0.53 0.48 Glucose Level 106 176 Calcium Level 8.7 8.6 Urine Test NEGATIVE Urine Color LT. YELLOW Urine Clarity CLEAR Urine pH 7.0 Urine Specific [place] 1.020 Urine Ketones TRACE H Urine Nitrite NEGATIVE Urine Bilirubin NEGATIVE Urine Urobilinogen 0.2 E.U./dL Urine Leukocyte Esterase NEGATIVE Urine Hemoglobin NEGATIVE Urine Glucose 0.25% H Urine Total Protein NEGATIVE Medications Medications Current Medications Morphine Sulfate 2 mg 2 mg Q2H PRN IV PAIN; Start 02/25/17 at 19:00 Acetaminophen (Ofirmev 1000mg/ 100ml Iv) 100 ml @ 400 mls/hr Q6H PRN IVPB PAIN Last administered on 02/26/17t 02:21; Admin Dose 400 MLS/HR; Start 02/26/17 at 01:00 Naloxone HCl (Narcan) 0.1 mg Q2M PRN IV FOR RESP RATE 8 OR LESS; Start at 11:00; Stop 03/01/17 at 10:59 Ketorolac Tromethamine (Toradol) 30 mg Q6H PRN IV PAIN; Start 02/28/17 at 11:00 ; Stop 03/01/17 at 10:59 Hydromorphone HCl (Dilaudid) 0.2 mg Q3H PRN IV PAIN LEVEL 1-5; Start 02/28/17 at 11:00; Stop 03/01/17 at 10:59 Hydromorphone HCl (Dilaudid) 0.4 mg Q3H PRN IV PAIN LEVEL 6-10; Start 02/28/17 at 11:00; Stop 03/01/17 at 10:59 Diphenhydramine HCl (Benadryl) 25 mg Q6H PRN IV ITCHING; Start 02/28/17 at 11: 00; Stop 03/01/17 at 10:59 Ondansetron HCl (Zofran Inj) 4 mg Q6H PRN IV NAUSEA AND/OR VOMITING; Start 09/06 at 11:00; Stop 03/01/17 at 10:59 Prochlorperazine 10 mg 10 mg ONCE PRN IV NAUSEA AND/OR VOMITING; Start 02/28/17 at 11:00; Stop 03/01/17 at 10:59 Metronidazole (Flagyl 500 Mg (Pmx)) 100 ml @ 100 mls/hr Q8H IVPB Last administered on 02/28/17t 15:57; Admin Dose 100 MLS/HR; Start 02/28/17 at 16:00 ; Stop 03/03/17 at 15:59 Morphine Sulfate (morphine) 2 mg Q2H PRN IV PAIN LEVEL 6-10; Start 02/28/17 at 10:30 Acetaminophen/ Hydrocodone Bitart ([place] (5/325)) 1 tab Q6H PRN PO PAIN LEVEL 6 -10; Start 02/28/17 at 10:30 Ondansetron HCl (Zofran Inj) 4 mg Q6H PRN IV NAUSEA AND/OR VOMITING; Start 09/06 at 10:30 Famotidine 20 mg 20 mg Q12 IV ; Start 02/28/17 at 21:00 Potassium Chloride 20 meq/ Lactated Ringer's 1,010 ml @ 100 mls/hr Q10H6M IV Last administered on 02/28/17t 13:58; Admin Dose 100 MLS/HR; Start 02/28/17 at 12:30 Levofloxacin/ Dextrose (Levaquin 500mg/ D5W 100 ml (Pmx)) 100 ml @ 100 mls/hr Q24H IVPB ; Start 03/01/17 at 08:00; Stop 03/03/17 at 08:59 RAÚL GARCIA February 28, 2017 16:35
[2017-02-28] MEDS ORDERED: POTASSIUM CHLORIDE 20 MEQ in SOD CHLORIDE 0.9% 100 ML IVPB ONE (17:00)
[2017-02-28] MEDS ORDERED: NITROGLYCERIN (SL) 0.4 MG TAB SL PRN (20:00)
--- NOTE | 2017-02-28 20:04 | OPR ---
Date/Time of Note Date/Time of Note DATE: 02/28/17 TIME: 20:03 Operative Report Free Text/Dictation 3 OPERATIVE REPORT [facility] Name: Yris Melo Medical Date: 02/28/17 Preoperative Diagnosis: 1- Right sided pelvic mass 2- Pelvic pain Postoperative Diagnosis: 1- Pelvic mass with torsion 2- Extensive pelvic adhesions 3- Ureteral stricture Procedures: 1- Laparoscopy 2- Lysis of adhesions 3- Unilateral ureteral dissection with repositioning 4- Right salpingoophorectomy Surgeon: Dr. Angel Medical Billing Representative: Dr. Coronel Anesthesia: General and regional Indications for Procedure: The patient is a 46 - year old female with a 10 cm multi-cystic right adnexal mass and pain with pending markers as appropriate for the patients age with severe pain and anemia consistent with a torsion all risks considered. After all options were presented with risks and benefits she agreed to a laparoscopy with a unilateral salpingoophorectomy and possible hysterectomy with bilateral salpingoophorectomy and staging if needed. Findings and Summary Name: Yris Melo Medical After exploration we observed some anterior abdominal wall omental and pelvic adhesions that were lysed and then a partially necrotic right adnexal mass densely adherent to the pelvic sidewall due to a probable torsion. Because the adnexia was adherent to the sidewall it was necessary to dissect and reposition the right ureter. The right adnexia was then removed without incident. Procedure: After being prepped and draped in the usual an EEA sizer and pneumo-occluder was inserted vaginally for manipulation and identification of anatomy as needed. A 5-millimeter trocar was then inserted cephlad to the umbilicus without incident and the abdomen was insufflated to 15 mm Hg, after which a 5- millimeter trocar was placed periumbilically. Subsequently, we then placed two 5 millimeter trocars laterally under direct visualization and omental adhesions densely adherent to the anterior abdominal wall and right adnexia were lysed with sharp dissection and the Omni when able. Subsequently, a 12 millimeter trocar suprapubically. At this time any pelvic adhesions were lysed with sharp dissection and a Omni or Gyrus bipolar cutting forceps in the event that no bowel were adjacent. Subsequently we explored and noted the uterus adherent to the anterior abdomen and right sidewall and an 8-10 centimeter right adnexal mass densely adherent to the pelvic sidewall and darkened with a distorted infundibulo-pelvic (IP) ligament consistent with a torsion. The right adnexae was enlarged to 8-10 cm and darkened, with significant adhesions to the pelvic sidewall precluding mobilization and distorting the ureteral anatomy while the contralateral adnexia was grossly normal. Hence, the peritoneum on the right sidewall was opened with and Omni and the round ligament was transected with a Thunderbeat and the retroperitoneum opened parallel to the infundibulo-pelvic ( IP) ligament with the Omni and Gyrus bipolar cutting forceps with the opening extended to define anatomy. The ureter was identified, and noted to be densely Name: Yris Melo Medical adherent to the pathology and somewhat distorted with distal stricture, hence requiring a ureteral dissection/repositioning as a separate procedure. The ureter was dissected away and repositioned with great care using the endo- dissector as well as the Omni bluntly with the Omni also used for retroperitoneal hemostasis as needed with the ureter visualized and mobilized as appropriate. This process was carried out throughout the ureteral length in the pelvis and it peristalsed normally once repositioned. Subsequently, right the IP-ligament was desiccated and transected with a Thunderbeat. The adnexia with adherent peritoneum was mobilized with a Omni while visualizing the ureter and the ureter was further dissected and mobilized with the Omni and endo- dissector with the Omni used for localized hemostasis as needed with the ureter visualized. Hence the ovary and tube were fully by desiccated and transaction of the right triple pedicle with Thunderbeat and Omni. The was placed in a 15-millimeter sac through the suprapubic trocar skin site and adnexia had the liquid contents removed and the mass was then removed and in a sac with a frozen section deferred. After irrigating and assuring hemostasis the 12-millimeter trocar was removed and the fascia was closed with 0-vicryl using an endo-close devise with multiple suture with subcutaneous area closed with interrupted 3-0 Vicryl suture. The gas was removed and the skin of all sites then closed with 4-0 pain gut suture. The EBL was 50 100ml and the patient tolerated the procedure well and left the OR in good condition. Neri Angel M.D. Procedure Date: February 28, 2017 NERI ANGEL MD February 28, 2017 20:04
[2017-02-28] MEDS ORDERED: SOD CHLORIDE 0.9% 0 ML ONE (20:50)
[2017-02-28] MEDS ORDERED: IOHEXOL 0 ML ONE (20:50)
[2017-02-28] MEDS ORDERED: IOHEXOL 350MG/ML 50 ML BTL ONE (20:50)
[2017-02-28] MEDS ORDERED: ASPIRIN (EC) 325 MG TAB PO ONE (21:00)
[2017-02-28] MEDS: FAMOTIDINE 20 MG INJ IV SCH (22:29)
[2017-02-28] MEDS: METOPROLOL 25 MG TAB PO SCH (22:30)
[2017-03-01] VITALS (13 sets, daily range): BP systolic 129–172; BP diastolic 68–80; PULSE 61–82; RESP 17–20
[2017-03-01 07:58] LABS: ADD SCAN DIFF NO
[2017-03-01 08:06] LABS: BASOPHILS % 0.3 % (0.0-2.0); HEMATOCRIT 28.7 % (37.0-47.0); HEMOGLOBIN 9.6 g/dl (12.0-16.0); LYMPHOCYTES # 1.6 10^3/ul (0.8-2.9); LYMPHOCYTES % 17.6 % (15.0-51.0); MEAN CORPUSCULAR HEMOGLOBIN 29.4 pg (29.0-33.0); MEAN CORPUSCULAR HGB CONC 33.4 g/dl (32.0-37.0); MEAN CORPUSCULAR VOLUME 87.8 fl (82.0-101.0); MEAN PLATELET VOLUME 9.9 fl (7.4-10.4); MONOCYTE # 0.9 10^3/ul (0.3-0.9); MONOCYTES % 9.5 % (0.0-11.0); NEUTROPHIL # 6.5 10^3/ul (1.6-7.5); NEUTROPHILS % 72.3 % (39.0-77.0); PLATELET COUNT 290 10^3/UL (140-415); RED BLOOD COUNT 3.27 10^6/ul (4.20-5.40); RED CELL DISTRIBUTION WIDTH 15.3 % (11.5-14.5); WHITE BLOOD COUNT 9.1 10^3/ul (4.8-10.8)
[2017-03-01 08:45] LABS: INR 1.1; PROTIME 14.2 Sec (12.2-14.2); PT RATIO 1.1
[2017-03-01] MEDS: HYDROCODONE/APAP (5/325) TAB PO PRN ×3 (08:46→21:21)
[2017-03-01] MEDS: FAMOTIDINE 20 MG INJ IV SCH ×2 (08:48→20:22)
[2017-03-01] MEDS: METOPROLOL 25 MG TAB PO SCH ×2 (08:48→20:30)
[2017-03-01] MEDS: ASPIRIN (EC) 325 MG TAB PO SCH (08:48)
[2017-03-01] MEDS: NITROGLYCERIN 2% 1 GM OINT PKT TD SCH ×2 (08:49→15:19)
[2017-03-01] MEDS: ENOXAPARIN 40 MG/0.4 ML SYG SC SCH (08:50)
[2017-03-01] MEDS: POTASSIUM CHLORIDE 20 MEQ in LACTATED RINGER'S 1,000 ML IV SCH ×2 (08:56→18:12)
[2017-03-01] MEDS: LEVOFLOXACIN 500MG/D5W (PMX) 100 ML IVPB SCH (09:00)
[2017-03-01] MEDS: metroNIDAZOLE 500 MG/NS (PMX) 100 ML IVPB SCH ×2 (09:00→15:19)
[2017-03-01 09:15] LABS: ALBUMIN/GLOBULIN RATIO 1.2; BILIRUBIN,INDIRECT 0.3 mg/dl (0-1.1); BILIRUBIN,TOTAL 0.3 mg/dl (0.2-1.3); CALCIUM 8.9 mg/dl (8.4-10.2); CREATININE 0.59 mg/dl (0.44-1.00); POTASSIUM 3.9 mmol/L (3.5-5.1); TOTAL PROTEIN 5.5 g/dl (6.1-8.1)
[2017-03-01] MEDS ORDERED: SOD CHLORIDE 0.9% 100 ML ONE (09:58)
[2017-03-01] MEDS ORDERED: IOHEXOL 100 ML ONE (09:58)
--- NOTE | 2017-03-01 10:36 | RADRPT ---
PROCEDURE: CTA Chest. CLINICAL INDICATION: Chest pain with abdominal surgery the day before TECHNIQUE: The study was performed utilizing a multidetector CT scanner. Direct spiral 1 mm axial sections were obtained from the thoracic inlet to the upper abdomen with the use of 95 cc of Omnipaq ue 350 nonionic intravenous contrast material and reformatted at 3 mm. Coronal and sagittal reformat ions were obtained. 3-D reconstructions were also obtained. The images were reviewed on a PACS work station. One or more of the following dose reduction techniques were used: - Automated exposure control. - Adjustment of the mA and/or kV according to patient size. Use of iterative reconstruction technique. DLP 283.2 mGycm CTDIvol 25.4 and 7.6 mGy COMPARISON: CT abdomen 02/26/2012 FINDINGS: The pulmonary arteries are within normal limits with no filling defects present to suggest pulmonary embolus. Is mild visible aortic atherosclerotic plaque with no evidence of dissection. There is no cardiomegaly. Mild bibasilar atelectasis with trace layering bilateral pleural effusions slight ground-glass withi n the lower lungs without consolidation. There is no pneumothorax pill There is no suspicious nodul e or mass. The airways are patent. There are no enlarged mediastinal or axillary lymph nodes. Air is seen within the peritoneal cavity which is likely related to the on the day before. Degenerat beryl changes are seen in the lumbar spine with no evidence of acute osseous abnormality. IMPRESSION: No CT evidence for pulmonary embolus. There is no aortic dissection. Free air is seen within the pneumoperitoneum. Mild atherosclerotic changes are seen without evidence of dissection. Mild bibasilar atelectasis is present with trace bilateral pleural effusions and mild ground-glass w hich could represent mild edema. RPTAT: AA .Juan Hay MD, MD Date Time Electronically viewed and signed by .Juan Hay MD, MD on 03/01/2017 10:35 .J/
[2017-03-01] MEDS ORDERED: IBUPROFEN 600 MG TAB PO PRN (16:30)
--- NOTE | 2017-03-01 17:01 | CONS ---
DATE OF ADMISSION: 02/25/2017 DATE OF CONSULTATION: 03/01/2017 REASON FOR CONSULTATION: Chest pain, assess for acute coronary syndrome. REQUESTING PHYSICIAN: Donald Haynes MD. HISTORY OF PRESENT ILLNESS: Ms. Melo is a 46-year-old female status post prior tubal ligation, w ho initially presented with right lower abdominal pain. The patient underwent a CT of the abdomen o n 02/25/2017 which revealed a 10.6 x 5.5 x 4.9 complex cystic structure arising from the right ovary , consistent with cystic ovarian neoplasm. Patient subsequently was taken to the OR on 02/28/2017 a nd underwent laparoscopic removal of the patient's pelvic mass, right salpingo-oophorectomy and lysi s of adhesions. Postoperatively, the patient was admitted to telemetry with complaints of left-side d substernal chest pain described as a pressure-like sensation with associated stabbing component. The patient denied associated shortness of breath and it is not related to position, sitting up, lyi ng back or exertional activities. PAST MEDICAL HISTORY: As above in HPI. MEDICATIONS CURRENTLY IN HOSPITAL 1. Aspirin 325 mg daily. 2. Lovenox once daily. 3. Nitrates 1/2 inch b.i.d. 4. Fluoxetine IV daily. 5. Pepcid ____ . 6. Metoprolol 25 mg p.o. b.i.d. 7. Nitroglycerin. 8. Flagyl. 9. Morphine p.r.n. 10. Platinum p.r.n. 11. Zofran p.r.n. 12. Tylenol p.r.n. ALLERGIES: NO KNOWN DRUG ALLERGIES. SOCIAL HISTORY: No tobacco, ETOH or illicit drug use. FAMILY HISTORY: No history of sudden cardiac or early CAD. REVIEW OF SYSTEMS: As above in HPI. CONSTITUTIONAL: No fevers, chills. PULMONARY: No current shortness of breath. CARDIOVASCULAR: Intermittent chest pain. GASTROINTESTINAL: No vomiting. GENITOURINARY: Status post removal of ovarian mass, laparoscopic. PSYCHIATRIC: No documented psych history. NEUROLOGIC: No documented CVA. PHYSICAL EXAMINATION VITAL SIGNS: Temperature of 98.7, blood pressure most recently 160/80, pulse 68, respirations 18, s aturating 98%. GENERAL: The patient is alert, awake, complaining of intermittent substernal chest pain. NECK: JVP approximately 8 cm water. CHEST: Fair air movement throughout. HEART: Regular rate and rhythm. S1, S2, I/ systolic murmur, nondisplaced PMI. ABDOMEN: Positive bowel sounds, soft. Ports covered by dressing. EXTREMITIES: No pitting edema, 1+ pulses bilaterally, posterior tibial. LABORATORIES: As above in HPI, with most recent from today, white count 9.1, hemoglobin 9.6, platel et count 290, Sodium 135, potassium 3.9, creatinine 0.59, BUN of 8. Troponin negative x2. LDL of 4 0, HDL 47. INR 1.1. UA negative. IMAGING STUDIES: A CTA from 03/01/[address] evidence of pulmonary embolus, free air seen within the pneumoperitoneum with mild atherosclerotic changes seen without evidence of dissection, mild bibasilar atelectasis and a chest x-ray from the revealed ____disease. ECG: Most recently from the 02/28/2017 reveals normal sinus rhythm, rate of 81, normal axis, normal intervals, isolated T-wave flattening in lead III. IMPRESSION: 1. Chest pain, assess for acute coronary syndrome. 2. Abnormal electrocardiogram with inferior T-wave flattening. Assess for acute coronary syndrome with reproducibility of the patient's chest pain on palpation on the left side of her chest, recapit ulating symptoms. 3. Abnormal electrocardiogram, assess for acute coronary syndrome. 4. Hypertension. 5. Possible____ pain. 6. Status post removal of a pelvic mass. 7. Anemia. RECOMMENDATIONS: 1. At this time would maintain patient on telemetry monitoring to follow rhythm and rate closely. 2. Would send additional troponins to rule out the patient for acute myocardial infarction. 3. Check a 2D echo to further assess the patient's ejection fraction, wall motion and any major kristie ve abnormalities. 3. We will continue to check serial EKGs to assess for significant ongoing changes. 4. Continue the patient's current beta dee and give patient p.r.n. sublingual nitroglycerin for recurrent episodes of chest pain. 5. Continue the patient's nitropaste at this time although likely this patient's chest pain does se em to be musculoskeletal. Continue the patient's aspirin and will additionally write for ibuprofen if the patient continues for possible musculoskeletal pain and costochondritis. Thank you for allowing me to take part in the care of this patient. I will continue to follow very closely with you with recommendations made as the patient progresses through her inpatient hospital clinical course. Dictated By: CLAUDIA WHALEY/MED Conf#: [id number] DID#: [id number] CC: DONALD HAYNES MD;*EndCC*
--- NOTE | 2017-03-01 18:16 | RADRPT ---
Vent Rate: 81 bpm RR Interval: 0 msec CO Interval: 152 msec QRS Duration: 88 msec QT Interval: 402 msec QTC Interval: 466 msec P-R-T [place]: 58 - 66 - 18 degrees Normal sinus rhythm Normal ECG Electronically Signed By: Francisco Rust [id number]
--- NOTE | 2017-03-01 18:24 | RADRPT ---
Echocardiogram Report Patient Name: SHLOMO MANN Gender: Female Date: 1970 Study Date: 01-Mar-2017 Programmer Business: Anuradha Richter RDCS Location: Ref. Physician: DONALD MIDDLETON Quality: Good Procedures: Transthoracic echocardiogram with complete 2D, M-Mode, and doppler examination. Indications: Chest Pain. 2D/M Mode Doppler Measurement Value Normal Ranges Measurement Value Normal Ranges LVIDd 2D 4.1 3.5 - 5.6 cm AV Peak [place] 1.6 m/sec LVIDs 2D 2.5 2.1 - 4.1 cm AV Peak PG 9.9 mmHg LVPWd 2D 1.0 0.6 - 1.1 cm LVOT Peak [place] 1.3 m/sec IVSd 2D 0.9 0.6 - 1.1 cm LVOT Peak PG 7.0 mmHg AoR Diam 2D 2.5 2.0 - 3.7 cm MV E Peak [place] 1.0 m/sec EDV 2D 75.3 cm3 MV A Peak [place] 0.5 m/sec ESV 2D 14.9 cm3 MV E/A 2.0 LA Dimen 2D 3.0 2.3 - 4.0 cm MV Decel Time 97 msec MV Decel [place] 10 MV E/A 2.0 TR Peak Geov[place] 2.0 m/sec TR Peak PG 16.8 mmHg RVSP 20.0 mmHg Findings Left Ventricle: Normal left ventricular systolic function. Normal left ventricular cavity size. Normal left ventricular wall thickness. Ejection fraction is visually estimated at 5560 %. Tissue Doppler/Mitral Doppler indices are within normal limits. Right Ventricle: Normal right ventricular size. Normal right ventricular systolic function. Left Atrium: The left atrium is normal in size. Right Atrium: The right atrium is normal in size. Mitral Valve: Normal appearance and function of the mitral valve with trace physiologic regurgitation. Aortic Valve: Normal appearance of the aortic valve. No significant aortic stenosis or insufficiency. Tricuspid Valve: Normal appearance of the tricuspid valve. Estimated peak PA systolic pressure 20 mmHg. There is trace tricuspid regurgitation. Pulmonic Valve: Normal pulmonic valve appearance. There is trace pulmonic regurgitation. Pericardium: Normal pericardium with no significant pericardial effusion. Aorta: Normal aortic root. IVC: Normal size and normal respiratory collapse consistent with normal right atrial pressure. Conclusions 1.Normal left ventricular systolic function. Normal left ventricular cavity size. Normal left ventricular wall thickness. Ejection fraction is visually estimated at 55-60 %. Tissue Doppler/Mitral Doppler indices are within normal limits. 2.Normal appearance and function of the mitral valve with trace physiologic regurgitation. 3.Normal appearance of the tricuspid valve. Estimated peak PA systolic pressure 20 mmHg. There is trace tricuspid regurgitation. 4.Normal pulmonic valve appearance. There is trace pulmonic regurgitation. Electronically Signed By: Miguel Angel Rouse 01-Mar-2017 18:23:42 -0700 Patient Name: SHLOMO MANN Study Date: 01-Mar-2017 [id number]
--- NOTE | 2017-03-01 18:44 | PN ---
Date/Time of Note Date/Time of Note DATE: 03/01/17 TIME: 18:36 Assessment/Plan VTE Prophylaxis VTE Prophylaxis Intervention: SCD's Lines/Catheters IV [facility] [place] Urinary Cath still in place: Yes Reason Cath still needed: urinary retention Assessment/Plan Chief Complaint/Hosp Course Assessment and Plan: - Pelvic mass with torsion, status post laparoscopic right salpingo- oophorectomy by Dr. Angel 02/28. - Postoperative chest pain most likely due to gas accumulation, rule out acute coronary syndrome, troponin is negative 2. Dr. Rouse is asked to see patient in cardiology consultation. Further recommendations based on clinical course. Plan of care discussed with Dr. Haynes. Problems: Subjective 24 Hr Interval Summary Free Text/Dictation Patient experienced chest pain yesterday however currently denies any chest pain , denies shortness of breath complained of postoperative abdominal pain, denies nausea vomiting. Patient is currently encouraged to use incentive spirometer and get out of bed. Exam/Review of Systems Vital Signs Vitals Vital Signs Date Time Temp Pulse Resp B/P Pulse Ox O2 Delivery O2 Flow Rate FiO2 03/01/17 16:21 70 03/01/17 16:06 98.2 18 160/80 98 02/28/17 19:43 Nasal Cannula 02/28/17 12:30 2.0 Intake and Output 02/28/17 02/28/17 03/01/17 15:00 23:00 07:00 Intake Total 2100 ml 1080 ml 600 ml Output Total 1800 ml 600 ml 850 ml Balance 300 ml 480 ml -250 ml Exam Constitutional: alert, oriented Psych: no complaints Head: atraumatic Eyes: nl conjunctiva ENMT: nl external ears & nose Neck: non-tender, supple Respiratory: normal air movement Cardiovascular: nl pulses, regular rate and rhythm Gastrointestinal: non-tender, soft, status post surgery Genitourinary - Female: other (Right lower quadrant pain) Extremities: normal pulses Results Result Diagram: 03/01/17 0651 03/01/17 0651 Results 24 hrs Laboratory Tests Test 03/01/17 01:03 03/01/17 06:51 03/01/17 17:20 Troponin I < 0.012 < 0.012 < 0.012 White Blood Count 9.1 Red Blood Count 3.27 L Hemoglobin 9.6 L Hematocrit 28.7 L Mean Corpuscular Volume 87.8 Mean Corpuscular Hemoglobin 29.4 Mean Corpuscular Hemoglobin Concent 33.4 Red Cell Distribution Width 15.3 H Platelet Count 290 Mean Platelet Volume 9.9 Neutrophils % 72.3 Lymphocytes % 17.6 Monocytes % 9.5 Eosinophils % 0.0 Basophils % 0.3 Nucleated Red Blood Cells % 0.0 Neutrophils # 6.5 Lymphocytes # 1.6 Monocytes # 0.9 Eosinophils # 0.0 Basophils # 0.0 Nucleated Red Blood Cells # 0.0 Prothrombin Time 14.2 Prothrombin Time Ratio 1.1 INR International Normalized Ratio 1.10 Sodium Level 135 Potassium Level 3.9 Chloride Level 105 Carbon Dioxide Level 28 Anion Gap 6 L Blood Urea Nitrogen 8 Creatinine 0.59 Glucose Level 79 # Calcium Level 8.9 Total Bilirubin 0.3 Direct Bilirubin 0.00 Indirect Bilirubin 0.3 Aspartate Amino Transf (AST/SGOT) 19 Alanine Aminotransferase (ALT/SGPT) 25 Alkaline Phosphatase 48 Total Protein 5.5 L Albumin 3.0 L Globulin 2.50 Albumin/Globulin Ratio 1.20 Triglycerides Level 48 Cholesterol Level 97 L LDL Cholesterol, Calculated 40 HDL Cholesterol 47 Cholesterol/HDL Ratio 2.0 Medications Medications Current Medications Morphine Sulfate 2 mg 2 mg Q2H PRN IV PAIN; Start 02/25/17 at 19:00 Acetaminophen 100 ml @ 400 mls/hr Q6H PRN IVPB PAIN Last administered on 02:21; Admin Dose 400 MLS/HR; Start 02/26/17 at 01:00 Metronidazole (Flagyl 500 Mg (Pmx)) 100 ml @ 100 mls/hr Q8H IVPB Last administered on 03/01/17 15:19; Admin Dose 100 MLS/HR; Start 02/28/17 at 16:00 ; Stop 03/03/17 at 15:59 Morphine Sulfate (morphine) 2 mg Q2H PRN IV PAIN LEVEL 6-10; Start 02/28/17 at 10:30 Acetaminophen/ Hydrocodone Bitart ([place] (5/325)) 1 tab Q6H PRN PO PAIN LEVEL 6 -10 Last administered on 03/01/17 15:19; Admin Dose 1 TAB; Start 02/28/17 at 10 :30 Ondansetron HCl (Zofran Inj) 4 mg Q6H PRN IV NAUSEA AND/OR VOMITING; Start 09/06 at 10:30 Famotidine 20 mg 20 mg Q12 IV Last administered on 03/01/17 08:48; Admin Dose 20 MG; Start 02/28/17 at 21:00 Potassium Chloride 20 meq/ Lactated Ringer's 1,010 ml @ 100 mls/hr Q10H6M IV Last administered on 03/01/17 18:12; Admin Dose 100 MLS/HR; Start 02/28/17 at 12:30 Levofloxacin/ Dextrose (Levaquin 500mg/ D5W 100 ml (Pmx)) 100 ml @ 100 mls/hr Q24H IVPB Last administered on 03/01/17 09:00; Admin Dose 100 MLS/HR; Start at 08:00; Stop 03/03/17 at 08:59 Aspirin (Ecotrin) 325 mg DAILY PO Last administered on 03/01/17 08:48; Admin Dose 325 MG; Start 03/01/17 at 09:00 Enoxaparin Sodium (Lovenox) 40 mg DAILY SC ; Start 03/01/17 at 09:00 Metoprolol Tartrate (Lopressor) 25 mg BID PO Last administered on 03/01/17 08: 48; Admin Dose 25 MG; Start 02/28/17 at 21:00 Nitroglycerin (Nitroglycerin (Sl Tab) 0.4 Mg) 1 tab Q5M PRN SL ANGINA; Start at 20:00 Nitroglycerin (Nitroglycerin 2% Oint) 0.5 inch DAILY@09,15 TD Last administered on 03/01/17 15:19; Admin Dose 0.5 INCH; Start 03/01/17 at 09:00 Ibuprofen (Motrin) 600 mg Q8H PRN PO Pain; Start 03/01/17 at 16:30 BAKARI RAYMUNDO March 01, 2017 18:44
[2017-03-01] MEDS ORDERED: METOPROLOL 25 MG TAB PO ONE (21:45)
[2017-03-02] VITALS (8 sets, daily range): BP systolic 140–163; BP diastolic 74–85; PULSE 63–80; RESP 20
[2017-03-02] MEDS: metroNIDAZOLE 500 MG/NS (PMX) 100 ML IVPB SCH ×2 (00:32→08:36)
[2017-03-02] MEDS: POTASSIUM CHLORIDE 20 MEQ in LACTATED RINGER'S 1,000 ML IV SCH (04:54)
[2017-03-02 07:12] LABS: ADD SCAN DIFF NO
[2017-03-02 07:19] LABS: BASOPHILS % 0.4 % (0.0-2.0); EOSINOPHILS # 0.1 10^3/ul (0.0-0.5); EOSINOPHILS % 1.1 % (0.0-7.0); HEMATOCRIT 28.3 % (37.0-47.0); HEMOGLOBIN 9.4 g/dl (12.0-16.0); LYMPHOCYTES # 1.6 10^3/ul (0.8-2.9); LYMPHOCYTES % 33.3 % (15.0-51.0); MEAN CORPUSCULAR HEMOGLOBIN 28.7 pg (29.0-33.0); MEAN CORPUSCULAR HGB CONC 33.2 g/dl (32.0-37.0); MEAN CORPUSCULAR VOLUME 86.5 fl (82.0-101.0); MONOCYTE # 0.5 10^3/ul (0.3-0.9); MONOCYTES % 10.5 % (0.0-11.0); NEUTROPHIL # 2.6 10^3/ul (1.6-7.5); NEUTROPHILS % 54.5 % (39.0-77.0); PLATELET COUNT 273 10^3/UL (140-415); RED BLOOD COUNT 3.27 10^6/ul (4.20-5.40); RED CELL DISTRIBUTION WIDTH 14.9 % (11.5-14.5); WHITE BLOOD COUNT 4.8 10^3/ul (4.8-10.8)
[2017-03-02 07:46] LABS: POTASSIUM 3.2 mmol/L (3.5-5.1)
[2017-03-02 07:48] LABS: CREATININE 0.59 mg/dl (0.44-1.00)
[2017-03-02 07:49] LABS: CALCIUM 8.5 mg/dl (8.4-10.2)
[2017-03-02] MEDS: LEVOFLOXACIN 500MG/D5W (PMX) 100 ML IVPB SCH (08:35)
[2017-03-02 08:50] LABS: CHOL/HDL RATIO 2.2 RATIO
[2017-03-02] MEDS: FAMOTIDINE 20 MG INJ IV SCH (08:54)
[2017-03-02] MEDS: ASPIRIN (EC) 325 MG TAB PO SCH (08:54)
[2017-03-02] MEDS ORDERED: METOPROLOL 50 MG TAB PO SCH (09:00)
[2017-03-02] MEDS: ENOXAPARIN 40 MG/0.4 ML SYG SC SCH (09:03)
[2017-03-02] MEDS: NITROGLYCERIN 2% 1 GM OINT PKT TD SCH (09:06)
--- NOTE | 2017-03-02 10:52 | DS ---
Date/Time of Note Date/Time of Note DATE: 03/02/17 TIME: 10:51 Discharge Summary Admission/Discharge Info Admit Date/Time February 25, 2017 at 17:12 Discharge Date/Time Final Diagnosis 1) pelvic mass Consults right salpingo-ooophrectomy Hospital Course Patient comes in with pelvic mass and underwent right salpingo-oophrectomy to remove the mass. Patient is doing better. She had chest pain but was cleared by cardiology. Assessment and Plan: - Pelvic mass with torsion, status post laparoscopic right salpingo- oophorectomy by Dr. Angel 02/28. - Postoperative chest pain most likely due to gas accumulation, rule out acute coronary syndrome, troponin is negative 2. Dr. Rouse is asked to see patient in cardiology consultation. Further recommendations based on clinical course. Plan of care discussed with Dr. Haynes. Home Meds No Active Prescriptions or Reported Meds Pending Labs Laboratory Tests Test 03/01/17 17:20 03/02/17 06:14 03/02/17 06:19 Troponin I < 0.012ng/ml (0.00-0.12) < 0.012ng/ml (0.00-0.12) Triglycerides Level 56mg/dl (0-149) Cholesterol Level 115mg/dl (100-200) LDL Cholesterol, Calculated 53mg/dl HDL Cholesterol 51mg/dl (34-88) Cholesterol/HDL Ratio 2.2RATIO White Blood Count 4.810^3/ul (4.8-10.8) Red Blood Count 3.2710^6/ul (4.20-5.40) Hemoglobin 9.4g/dl (12.0-16.0) Hematocrit 28.3% (37.0-47.0) Mean Corpuscular Volume 86.5fl (82.0-101.0) Mean Corpuscular Hemoglobin 28.7pg (29.0-33.0) Mean Corpuscular Hemoglobin Concent 33.2g/dl (32.0-37.0) Red Cell Distribution Width 14.9% (11.5-14.5) Platelet Count 13707^3/UL (140-415) Mean Platelet Volume 10.0fl (7.4-10.4) Neutrophils % 54.5% (39.0-77.0) Lymphocytes % 33.3% (15.0-51.0) Monocytes % 10.5% (0.0-11.0) Eosinophils % 1.1% (0.0-7.0) Basophils % 0.4% (0.0-2.0) Nucleated Red Blood Cells % 0.0/100WBC (0.0-0.0) Neutrophils # 2.610^3/ul (1.6-7.5) Lymphocytes # 1.610^3/ul (0.8-2.9) Monocytes # 0.510^3/ul (0.3-0.9) Eosinophils # 0.110^3/ul (0.0-0.5) Basophils # 0.010^3/ul (0.0-0.1) Nucleated Red Blood Cells # 0.010^3/ul (0.0-0.0) Sodium Level 139mmol/L (135-144) Potassium Level 3.2mmol/L (3.5-5.1) Chloride Level 102mmol/L (97-110) Carbon Dioxide Level 29mmol/L (21-31) Anion Gap 11 (8-16) Blood Urea Nitrogen 6mg/dl (7-20) Creatinine 0.59mg/dl (0.44-1.00) Glucose Level 84mg/dl (70-220) Calcium Level 8.5mg/dl (8.4-10.2) DARIAN CONWAY March 02, 2017 10:52
[2017-03-02] MEDS ORDERED: metroNIDAZOLE 250 MG TAB PO SCH (14:00)
--- NOTE | 2017-03-02 15:55 | CONS ---
Date/Time of Note Date/Time of Note DATE: 03/02/17 TIME: 15:51 Assessment/Plan Assessment/Plan Additional Assessment/Plan Atypical chest pain Abnormal Electrocardiogram Hypertension Status post pelvic mass resection Anemia. Echo shows preserved systolic function and has been ruled out for ACS with serial negative troponin's Hemodynamically stable Continue Metoprolol Continue ASA Continue GI and DVT Prophylaxis Replete Potassium Consultation Date/Type/Reason Admit Date/Time February 26, 2017 Hospital consult Constitutional: improved, No chills, No diaphoresis, No disoriented, No febrile, No no complaints, No other, No poor po, No requiring IVF, No requiring O2 Eyes: No discharge, No no complaints, No other, No pain, No redness, No visual change ENT: No bleeding, No congestion, No discharge, No dysphagia, No no complaints, No other, No pain, No sore throat Respiratory: No cough, No no complaints, No other, No pain, No pleuritic pain, No shortness of breath, No sputum, No wheezing Cardiovascular: No chest pain, No edema, No lightheadedness, No no complaints, No orthopenea, No other, No palpitations, No paroxysmal nocturnal dyspnea Gastrointestinal: other (As I mentioned she was complaining of right lower quadrant pain and and right side pain and nausea and occasional vomiting), No blood, No constipation, No decreased appetite, No diarrhea, No flatus, No nausea, No no complaints, No pain, No passing stool, No vomiting Genitourinary: other (On pelvic exam vulva vagina cervix was normal and some tenderness and a soft mass could be palpated on the pelvis), No bleeding, No discharge, No dysuria, No flank pain, No hematuria, No no complaints Musculoskeletal: No back pain, No bone/joint pain, No neck pain, No no complaints, No other, No restricted range of motion, No swelling Skin: No bruising, No erythema, No laceration, No no complaints, No other, No pruritis, No rash, No skin lesions Endocrine: No dry skin, No no complaints, No other, No polydypsia, No polyuria , No temp intolerance Psychological: no complaints Immunologic: no complaints Social History Smoking Status: Never smoker Exam/Review of Systems Vital Signs Vitals Vital Signs Date Time Temp Pulse Resp B/P Pulse Ox O2 Delivery O2 Flow Rate FiO2 03/02/17 12:33 68 03/02/17 11:13 98.3 20 145/79 99 03/01/17 22:00 Nasal Cannula 02/28/17 12:30 2.0 Intake and Output 03/01/17 03/01/17 03/02/17 15:00 23:00 07:00 Intake Total 2400 ml 1200 ml Balance 2400 ml 1200 ml Exam Constitutional: alert Head: atraumatic, normocephalic Neck: non-tender, supple Respiratory: clear to auscultation Cardiovascular: regular rate and rhythm Gastrointestinal: nl liver, spleen, non-tender, soft Extremities: normal pulses Results Result Diagram: 03/02/17 0619 03/02/17 0619 Results 24 hrs Laboratory Tests Test 03/01/17 17:20 03/02/17 06:14 03/02/17 06:19 Troponin I < 0.012 < 0.012 Triglycerides Level 56 Cholesterol Level 115 LDL Cholesterol, Calculated 53 HDL Cholesterol 51 Cholesterol/HDL Ratio 2.2 White Blood Count 4.8 # Red Blood Count 3.27 L Hemoglobin 9.4 L Hematocrit 28.3 L Mean Corpuscular Volume 86.5 Mean Corpuscular Hemoglobin 28.7 L Mean Corpuscular Hemoglobin Concent 33.2 Red Cell Distribution Width 14.9 H Platelet Count 273 Mean Platelet Volume 10.0 Neutrophils % 54.5 Lymphocytes % 33.3 Monocytes % 10.5 Eosinophils % 1.1 Basophils % 0.4 Nucleated Red Blood Cells % 0.0 Neutrophils # 2.6 Lymphocytes # 1.6 Monocytes # 0.5 Eosinophils # 0.1 Basophils # 0.0 Nucleated Red Blood Cells # 0.0 Sodium Level 139 Potassium Level 3.2 L Chloride Level 102 Carbon Dioxide Level 29 Anion Gap 11 Blood Urea Nitrogen 6 L Creatinine 0.59 Glucose Level 84 Calcium Level 8.5 Medications Medications Current Medications Morphine Sulfate 2 mg 2 mg Q2H PRN IV PAIN; Start 02/25/17 at 19:00 Acetaminophen (Ofirmev 1000mg/ 100ml Iv) 100 ml @ 400 mls/hr Q6H PRN IVPB PAIN Last administered on 02/26/17t 02:21; Admin Dose 400 MLS/HR; Start 02/26/17 at 01:00 Morphine Sulfate (morphine) 2 mg Q2H PRN IV PAIN LEVEL 6-10; Start 02/28/17 at 10:30 Acetaminophen/ Hydrocodone Bitart ([place] (5/325)) 1 tab Q6H PRN PO PAIN LEVEL 6 -10 Last administered on 03/01/17 21:21; Admin Dose 1 TAB; Start 02/28/17 at 10 :30 Ondansetron HCl (Zofran Inj) 4 mg Q6H PRN IV NAUSEA AND/OR VOMITING; Start 09/06 at 10:30 Famotidine 20 mg 20 mg Q12 IV Last administered on 03/02/17 08:54; Admin Dose 20 MG; Start 02/28/17 at 21:00 Potassium Chloride/Lactated Ringer's (KCl/Lr) 1,010 ml @ 100 mls/hr Q10H6M IV Last administered on 03/01/17 18:12; Admin Dose 100 MLS/HR; Start 02/28/17 at 12:30 Aspirin (Ecotrin) 325 mg DAILY PO Last administered on 03/02/17 08:54; Admin Dose 325 MG; Start 03/01/17 at 09:00 Enoxaparin Sodium (Lovenox) 40 mg DAILY SC Last administered on 03/02/17 09:03 ; Admin Dose 40 MG; Start 03/01/17 at 09:00 Nitroglycerin (Nitroglycerin (Sl Tab) 0.4 Mg) 1 tab Q5M PRN SL ANGINA; Start at 20:00 Nitroglycerin (Nitroglycerin 2% Oint) 0.5 inch DAILY@09,15 TD Last administered on 03/02/17 09:06; Admin Dose 0.5 INCH; Start 03/01/17 at 09:00 Ibuprofen (Motrin) 600 mg Q8H PRN PO Pain; Start 03/01/17 at 16:30 Metoprolol Tartrate (Lopressor) 50 mg BID PO Last administered on 03/02/17 08: 55; Admin Dose 50 MG; Start 03/02/17 at 09:00 Simethicone (Mylicon) 80 mg Q4H PRN PO DISTENSION/GAS/BLOATING Last administered on 03/01/17 22:03; Admin Dose 80 MG; Start 03/01/17 at 21:30 Metronidazole (Flagyl) 250 mg Q8 PO ; Start 03/02/17 at 14:00 Levofloxacin (Levaquin) 500 mg DAILY@06 PO ; Start 03/03/17 at 06:00 JOI CLAIRE M.D. March 02, 2017 15:55
[2017-03-02] MEDS ORDERED: POTASSIUM CHLORIDE 20 MEQ POWDER FOR ORAL SOLN PO ONE (16:00)
[2017-03-02] MEDS ORDERED: FAMOTIDINE 20 MG TAB PO SCH (21:00)
[2017-03-03] MEDS ORDERED: LEVOFLOXACIN 500 MG TAB PO SCH (06:00)
== END 2017-03-02 16:27 | disposition home or self-care (01) | DRG 743 ==
LOC: E/R 10:56 → MS1 17:12 → TEL 02-28 21:23
PROVIDERS: ADMIT Internal Medicine; ATTEND Internal Medicine
PROC: 0UT04ZZ Resection of Right Ovary, Percutaneous Endoscopic Approach (ICD-10-PCS; 2017-02-28)
PROC: 0JNC3ZZ Release Pelvic Region Subcutaneous Tissue and Fascia, Percutaneous Approach (ICD-10-PCS; 2017-02-28)
PROC: 0UT54ZZ Resection of Right Fallopian Tube, Percutaneous Endoscopic Approach (ICD-10-PCS; principal; 2017-02-28 07:30)
DX: N83.511 Torsion of right ovary and ovarian pedicle (principal); I10 Essential (primary) hypertension; N83.291 Other ovarian cyst, right side; R19.00 Intra-abdominal and pelvic swelling, mass and lump, unspecified site; G89.18 Other acute postprocedural pain; R07.9 Chest pain, unspecified; R94.31 Abnormal electrocardiogram [ECG] [EKG]; D64.9 Anemia, unspecified
CPT/HCPCS: 36415; 71020; 71275; 74176; 76830; 76856; 80048; 80053; 80061; 81003; 83690; 84484; 84703; 85025; 85049; 85610; 85670; 85730; 86304; 86850; 86900; 86901; 86920; 88104; 88305; 93005; 93306; 96374; 96375; J0131; J0360; J1100; J1200; J1650; J1956; J2250; J2270; J2274; J2370; J2405; J2710; J3010; J3480; J7030; J7120; Q9967

== ENCOUNTER 2017-11-26 14:13 | Emergency (ER) | END 2017-11-26 23:27 | disposition home or self-care (01) ==

== ENCOUNTER 2019-04-27 18:08 | Emergency (ER) | payer OTHER ==
[~2019-04-27] VITALS: Ht 157.5 cm; Wt 57.6 kg
[~2019-04-27 18:08] MED LIST: CYCL10TA7 PO; FER325 PO; LISI-313 PO; MED4DP PO; NAPR-688 PO; NAPR-985 PO; OXYC-279 PO
[2019-04-27 18:22] VITALS: Ht 157.5 cm; Wt 57.6 kg
--- NOTE | 2019-04-27 18:41 | ERD ---
ER Documentation Chief Complaint Chief Complaint htn at home HPI The patient is a 49-year-old female, presenting to the ER because of occipital headache that began around 4 PM today and yesterday. She had similar symptoms previously when her blood pressure was high, denies blurred vision, facial pain, neck pain, chest pain, dyspnea, abdominal pain, vomiting, dysuria, diarrhea. She had a transient chest discomfort while she was waiting in the waiting room but denies any chest pain now. She has a lot of stress in her life, denies smoking, drinks socially Past medical history: Hypertension, anxiety Past surgical history: Tubal ligation ROS All systems reviewed and are negative except as per history of present illness. Medications Home Meds Active Scripts Naproxen* (Naprosyn*) 500 Mg Tablet, 500 MG PO BID PRN for PAIN AND/OR INFLAMMATION, #30 TAB Prov:CORY CABALLERO PA-C 11/13/18 Cyclobenzaprine Hcl* (Cyclobenzaprine Hcl*) 10 Mg Tablet, 10 MG PO TID, #15 TAB Prov:CORY CABALLERO PA-C 11/13/18 Methylprednisolone* (Medrol* DOSE PACK) 4 Mg/Dose-Pack Tab.ds.pk, 4 MG PO . DIRECTED, #1 PACKET Prov:CORY CABALLERO PA-C 11/13/18 Oxycodone HCl/Acetaminophen (Percocet 5-325 mg Tablet) 1 Each Tablet, 1 EACH PO DAILY, #7 TAB Prov:CORY CABALLERO PA-C 11/13/18 Naproxen* (Naproxen*) 500 Mg Tablet, 500 MG PO BID PRN for PAIN, #20 TAB Prov:YURY JOYCE DO 11/26/17 Ferrous Sulfate* (Ferrous Sulfate*) 325 Mg Tabec, 325 MG PO DAILY for 10 Days, TAB Prov:YURY JOYCE DO 11/26/17 Reported Medications Lisinopril* (Lisinopril*) 5 Mg Tablet, 5 MG PO DAILY, #30 TAB 11/26/17 Allergies Allergies: Coded Allergies: No Known Allergy (Unverified , 11/26/17) PMhx/Soc History of Surgery: Yes (TUBAL LIGATION, oophrectomy) Anesthesia Reaction: Yes (PALPITATION EFFECT DURING TOOTH EXTRACTION) Hx Neurological Disorder: No Hx Respiratory Disorders: No Hx Cardiac Disorders: Yes (htn) Hx Psychiatric Problems: No Hx Miscellaneous Medical Probl: Yes (OVARIAN MASS) Hx Alcohol Use: Yes (SOMETIMES) Hx Substance Use: No Hx Tobacco Use: No Physical Exam Vitals Vital Signs Date Temp Pulse Resp B/P (MAP) Pulse Ox O2 O2 Flow FiO2 Time Delivery Rate 04/27/19 70 20 135/85 100 Room Air 20:04 (102) 04/27/19 97.7 72 18 195/92 99 18:22 (126) Physical Exam Const: No acute distress. Head: Atraumatic. Eyes: Normal Conjunctiva. ENT: Normal External Ears, Nose and Mouth. Neck: Full range of motion. No meningismus. Resp: Clear to auscultation bilaterally. Cardio: Regular rate and rhythm. Abd: Soft, non distended, normal bowel sounds, non tender. Skin: No petechiae or rashes. Back: No midline or flank tenderness. Ext: No cyanosis, or edema. Neur: Awake and alert. No focal deficit Psych: Normal Mood and Affect. Results 24 hrs Current Medications Medications Dose Sig/Gilda Start Time Status Last (Trade) Ordered Route PRN Stop Time Admin Dose Reason Admin Clonidine 0.1 mg ONCE ONCE 04/27/19 DC 04/27/19 (Catapres) PO 19:00 04/27/19 19:30 19:01 650 mg ONCE ONCE 04/27/19 DC 04/27/19 Acetaminophen PO 19:00 04/27/19 19:30 (Tylenol 19:01 Tab) Procedures/MDM EKG: Read by emergency physician Rate/Rhythm: Normal Sinus Rhythm 61 beats/min QRS, ST, T-waves: No ST elevation, no T inversion Impression: Normal EKG MEDICAL MAKING DECISION: The patient is a 49-year-old female, presenting with acute accidental hypertension, was treated with clonidine 0.1 mg p.o. and Tylenol 650 mg p.o. with good response, is stable for outpatient follow-up The differential diagnoses considered include but are not limited to subarachnoid hemorrhage, occult trauma, CVA, meningitis, encephalitis, hypertension, tension, migraine, cluster, narcotic withdrawal, cervical spine disease. Departure Diagnosis: Primary Impression: Hypertensive urgency Condition: Good Comments I discussed the findings with the patient. I advised the patient to follow-up with the primary physician in about 1-2 days, sooner if needed and return if any concern. Disclaimer: Inadvertent spelling and grammatical errors are likely due to EHR/dictation software use and do not reflect on the overall quality of patient care. Also, please note that the electronic time recorded on this note does not necessarily reflect the actual time of the patient encounter. OKSANA LEGER MD Apr 27, 2019 18:41
[2019-04-27] MEDS ORDERED: ACETAMINOPHEN 325 MG TAB PO ONE (19:00)
[2019-04-27 20:04] VITALS: BP 135/85; PULSE 70; RESP 20
== END 2019-04-27 20:30 | disposition home or self-care (01) ==
LOC: E/R 18:08
DX: I16.0 Hypertensive urgency (principal); I10 Essential (primary) hypertension
CPT/HCPCS: 93005; Z7502; Z7610